=== PATIENT | female | born 1950 | race Caucasian/White ===

== ENCOUNTER 2018-04-23 05:44 | Day surgery (SDC) | payer MEDICARE ==
[2018-04-21 11:48] LABS: BASOPHILS # (AUTO) 0.08 x10^3/uL (0-0.1); BASOPHILS % (AUTO) 1 % (0-1); EOSINOPHILS # (AUTO) 0.09 x10^3/uL (0-0.4); EOSINOPHILS % (AUTO) 1 % (1-7); LYMPHOCYTES # (AUTO) 1.15 x10^3/uL (1-3.4); LYMPHOCYTES % (AUTO) 16 % (22-44); MD NO; MEAN CORPUSCULAR HEMOGLOBIN 31.5 pg (27.0-34.8); MEAN CORPUSCULAR VOLUME 92.8 fL (80-100); MEAN PLATELET VOLUME 7.6 fL (7.4-10.4); MONOCYTES # (AUTO) 0.62 x10^3/uL (0.2-0.8); MONOCYTES % (AUTO) 8 % (2-9); NEUTROPHILS # (AUTO) 5.45 x10^3/uL (1.8-6.8); NEUTROPHILS % (AUTO) 74 % (42-75); PLATELET COUNT 209 x10^3/uL (130-400); RED BLOOD COUNT 4.95 x10^6/uL (3.82-5.3); RED CELL DISTRIBUTION WIDTH 13.9 % (9.6-15.2)
[2018-04-21 11:56] LABS: ANION GAP 8 mmol/L (5-15); CALCIUM 9.5 mg/dL (8.5-10.1); CHLORIDE 96 mmol/L (98-107); CREATININE 0.81 mg/dL (0.55-1.02)
[~2018-04-23] VITALS: Ht 157.5 cm; Wt 53.0 kg
[~2018-04-23 05:44] MED LIST: AMLO10TA6 PO; ASPI-650 PO; LOSA1TAB22 PO; OXYC-302 PO; TRAM50TA2 PO; VALS320T2 PO
[2018-04-23 06:19] VITALS: BP 142/98
[2018-04-23] MEDS ORDERED: D5%-0.45% NACL 1,000 ML IV SCH (06:30)
[2018-04-23] MEDS ORDERED: DIPHENHYDRAMINE 50 MG/ML, 1ML ONE (07:08)
[2018-04-23] MEDS ORDERED: LIDOCAINE-MPF 1%, 5ML ONE (07:09)
[2018-04-23] MEDS ORDERED: NITROGLYCERIN 5 MG/ML, 10ML ONE (07:26)
[2018-04-23] MEDS ORDERED: FENTANYL PF 100 MCG/2ML ONE (07:26)
[2018-04-23] MEDS ORDERED: MIDAZOLAM 1 MG/ML, 5ML ONE (07:26)
[2018-04-23] MEDS ORDERED: FLUMAZENIL 0.1 MG/1 ML, 5ML ONE (07:26)
[2018-04-23] MEDS ORDERED: PROTAMINE SULFATE 10 MG/ML, 25ML ONE (07:27)
[2018-04-23] MEDS ORDERED: HEPARIN 1,000 UNITS/ML, 10ML ONE (07:27)
[2018-04-23] MEDS ORDERED: NALOXONE 1 MG/ML, 2ML ONE (07:27)
[2018-04-23] MEDS ORDERED: DIPHENHYDRAMINE 50 MG/ML, 1ML IVPush ONE (07:30)
[2018-04-23] MEDS ORDERED: CLOP75TA PO (09:44)
[2018-04-23] MEDS ORDERED: SODIUM CHLORIDE 0.9% 1,000 ML IV SCH (10:00)
[2018-04-23] MEDS ORDERED: CLOPIDOGREL 75 MG TABLET PO ONE (10:00)
[2018-04-23] MEDS ORDERED: VISIPAQUE 270 MG/ML, 50ML BOTTLE ONE (13:00)
== END 2018-04-23 14:00 | disposition home or self-care (01) ==
LOC: OUT 05:44
PROVIDERS: ATTEND Surgery
DX: I70.223 Atherosclerosis of native arteries of extremities with rest pain, bilateral legs (principal); I74.09 Other arterial embolism and thrombosis of abdominal aorta; I10 Essential (primary) hypertension; Z98.890 Other specified postprocedural states; Z96.641 Presence of right artificial hip joint; Z88.1 Allergy status to other antibiotic agents; Z88.8 Allergy status to other drugs, medicaments and biological substances; Z87.891 Personal history of nicotine dependence
CPT/HCPCS: 36415; 37221; 37236; 75630; 80048; 85025; 93970; C1751; C1760; C1769; C1874; C1876; C1894; J1200; J1644; J2250; J3010; Q9966; J2720; J2310

== ENCOUNTER → 2018-05-28 | Outpatient (CLI) | payer MEDICARE ==
[~2018-05-28] MED LIST changes: +CLOP75TA PO
[2018-05-28 11:25] LABS: BASOPHILS # (AUTO) 0.09 x10^3/uL (0-0.1); BASOPHILS % (AUTO) 1 % (0-1); EOSINOPHILS % (AUTO) 1 % (1-7); LYMPHOCYTES # (AUTO) 1.56 x10^3/uL (1-3.4); LYMPHOCYTES % (AUTO) 20 % (22-44); MD NO; MEAN CORPUSCULAR HEMOGLOBIN 30.3 pg (27.0-34.8); MEAN CORPUSCULAR HGB CONC 33.3 g/dL (32.4-35.8); MEAN CORPUSCULAR VOLUME 91.1 fL (80-100); MEAN PLATELET VOLUME 7.1 fL (7.4-10.4); MONOCYTES # (AUTO) 0.66 x10^3/uL (0.2-0.8); MONOCYTES % (AUTO) 9 % (2-9); NEUTROPHILS # (AUTO) 5.33 x10^3/uL (1.8-6.8); NEUTROPHILS % (AUTO) 69 % (42-75); PLATELET COUNT 203 x10^3/uL (130-400); RED BLOOD COUNT 4.54 x10^6/uL (3.82-5.3); RED CELL DISTRIBUTION WIDTH 13.7 % (9.6-15.2)
[2018-05-28 12:51] LABS: ANION GAP 6 mmol/L (5-15); CALCIUM 8.9 mg/dL (8.5-10.1); CHLORIDE 97 mmol/L (98-107); CREATININE 0.75 mg/dL (0.55-1.02)
== END | disposition home or self-care (01) ==
LOC: STAR 10:57
PROVIDERS: ATTEND Surgery
DX: Z01.818 Encounter for other preprocedural examination (principal)
CPT/HCPCS: 36415; 80048; 85025

== ENCOUNTER 2018-06-02 06:10 | Day surgery (SDC) | payer MEDICARE ==
[~2018-06-02] VITALS: Ht 157.5 cm; Wt 54.8 kg
[2018-06-02 06:28] VITALS: BP 143/97
[2018-06-02] MEDS ORDERED: D5%-0.45% NACL 1,000 ML IV SCH ×2 (06:30→09:31)
[2018-06-02] MEDS ORDERED: FENTANYL PF 100 MCG/2ML ONE (07:12)
[2018-06-02] MEDS ORDERED: HEPARIN 1,000 UNITS/ML, 10ML ONE (07:12)
[2018-06-02] MEDS ORDERED: FLUMAZENIL 0.1 MG/1 ML, 5ML ONE (07:12)
[2018-06-02] MEDS ORDERED: NITROGLYCERIN 5 MG/ML, 10ML ONE (07:12)
[2018-06-02] MEDS ORDERED: MIDAZOLAM 1 MG/ML, 5ML ONE (07:12)
[2018-06-02] MEDS ORDERED: NALOXONE 1 MG/ML, 2ML ONE (07:13)
[2018-06-02] MEDS ORDERED: PROTAMINE SULFATE 10 MG/ML, 25ML ONE (07:13)
[2018-06-02] MEDS ORDERED: LIDOCAINE-MPF 1%, 5ML ONE ×2 (07:28)
[2018-06-02] MEDS ORDERED: ACETAMINOPHEN 325 MG TABLET PO PRN (10:00)
[2018-06-02] MEDS ORDERED: ONDANSETRON 2MG/ML, 2ML IV PRN (10:00)
[2018-06-02] MEDS ORDERED: VISIPAQUE 270 MG/ML, 50ML BOTTLE ONE (11:21)
[2018-06-02] MEDS ORDERED: OMNIPAQUE 350 MG/ML, 100ML BOTTLE ONE (11:42)
== END 2018-06-02 13:05 | disposition home or self-care (01) ==
LOC: OUT 06:10 → UNDOADMOB 09:31 → ORIP 09:31 → OUT 13:05
PROVIDERS: ATTEND Surgery
DX: I70.221 Atherosclerosis of native arteries of extremities with rest pain, right leg (principal); I10 Essential (primary) hypertension; Z96.641 Presence of right artificial hip joint; Z98.890 Other specified postprocedural states
CPT/HCPCS: 37220; 74174; 75710; 76937; 99156; 99157; C1725; C1751; C1769; C1894; J1644; J2250; J3010; Q9966; Q9967; J2720; J2310

== ENCOUNTER → 2018-07-22 | Outpatient (CLI) | payer MEDICARE | END | disposition home or self-care (01) | LOC: CVU 13:26 | PROVIDERS: ATTEND Surgery | DX: I11.9 Hypertensive heart disease without heart failure (principal); I31.3 Pericardial effusion (noninflammatory); I10 Essential (primary) hypertension; Z87.891 Personal history of nicotine dependence | CPT/HCPCS: 93306 ==

== ENCOUNTER → 2018-08-25 | Outpatient (CLI) | payer MEDICARE ==
[~2018-08-25] MED LIST changes: -AMLO10TA6 PO; +AMLO10TA8 PO
[2018-08-25 15:41] LABS: BASOPHILS # (AUTO) 0.07 x10^3/uL (0-0.1); BASOPHILS % (AUTO) 1 % (0-1); EOSINOPHILS # (AUTO) 0.08 x10^3/uL (0-0.4); EOSINOPHILS % (AUTO) 1 % (1-7); LYMPHOCYTES # (AUTO) 1.35 x10^3/uL (1-3.4); LYMPHOCYTES % (AUTO) 19 % (22-44); MD NO; MEAN CORPUSCULAR HEMOGLOBIN 30.1 pg (27.0-34.8); MEAN CORPUSCULAR VOLUME 91.2 fL (80-100); MEAN PLATELET VOLUME 7.2 fL (7.4-10.4); MONOCYTES # (AUTO) 0.56 x10^3/uL (0.2-0.8); MONOCYTES % (AUTO) 8 % (2-9); NEUTROPHILS # (AUTO) 5.26 x10^3/uL (1.8-6.8); NEUTROPHILS % (AUTO) 72 % (42-75); PLATELET COUNT 184 x10^3/uL (130-400); RED BLOOD COUNT 4.96 x10^6/uL (3.82-5.3); RED CELL DISTRIBUTION WIDTH 14.3 % (9.6-15.2)
[2018-08-25 15:53] LABS: ALBUMIN 3.8 g/dL (3.4-5.0); ANION GAP 7 mmol/L (5-15); CALCIUM 9.1 mg/dL (8.5-10.1); CHLORIDE 99 mmol/L (98-107)
[2018-08-25 15:57] LABS: ALANINE AMINOTRANSFERASE 21 U/L (12-78); ALKALINE PHOSPHATASE 129 U/L (45-117); BILIRUBIN,TOTAL 0.5 mg/dL (0.2-1.0); CREATININE 0.71 mg/dL (0.55-1.02); TOTAL PROTEIN 7.6 g/dL (6.4-8.2)
== END | disposition home or self-care (01) ==
LOC: STAR 14:35
PROVIDERS: ATTEND Surgery
DX: Z01.818 Encounter for other preprocedural examination (principal)
CPT/HCPCS: 36415; 71046; 80053; 85025; 93005

== ENCOUNTER 2018-08-29 07:58 | Inpatient (IN) | payer MEDICARE ==
[~2018-08-29] VITALS: Ht 157.5 cm; Wt 52.3 kg
[~2018-08-29 07:58] MED LIST changes: +HEPARIN 1,000 UNITS/ML, 10ML ONE; +LIDOCAINE 1%, 20ML ONE; +PAPAVERINE 30 MG/ML, 2ML ONE; +PROTAMINE SULFATE 10 MG/ML, 5ML ONE; +THROMBIN 20,000 UNIT VIAL TP ONE
[2018-08-29 08:24] VITALS: BP 141/93
[2018-08-29] MEDS ORDERED: LACTATED RINGERS 1,000 ML IV SCH (08:28)
[2018-08-29] MEDS ORDERED: MIDAZOLAM 1 MG/ML, 2ML ONE ×2 (09:58→14:45)
[2018-08-29] MEDS ORDERED: FENTANYL PF 250 MCG/5ML ONE ×2 (09:59→16:06)
[2018-08-29] MEDS ORDERED: SUCCINYLCHOLINE 20 MG/ML, 10ML ONE (11:09)
[2018-08-29] MEDS ORDERED: MANNITOL PMX 20% [20 GM/100 ML] 500ML ONE (11:09)
[2018-08-29] MEDS ORDERED: EPINEPHRINE SYRINGE 0.1 MG/ML, 10ML ONE (11:09)
[2018-08-29] MEDS ORDERED: SODIUM BICARB 8.4%, 50ML SYRINGE ONE (11:09)
[2018-08-29] MEDS ORDERED: ONDANSETRON 2MG/ML, 2ML ONE (11:09)
[2018-08-29] MEDS ORDERED: PHENYLEPHRINE 10 MG/ML ONE (11:09)
[2018-08-29] MEDS ORDERED: ROCURONIUM 10MG/ML,5ML ONE (11:09)
[2018-08-29] MEDS ORDERED: LIDOCAINE 1%-EPI 1:100K, 20ML ONE (11:09)
[2018-08-29] MEDS ORDERED: CALCIUM CHLORIDE 13.6 MEQ/10 ML ONE (11:09)
[2018-08-29] MEDS ORDERED: FUROSEMIDE 20 MG/2 ML ONE (11:09)
[2018-08-29] MEDS ORDERED: HEPARIN 1,000 UNITS/ML, 10ML ONE (12:01)
[2018-08-29] MEDS ORDERED: MEPERIDINE/PF 25MG/0.5ML IVPush PRN (12:30)
[2018-08-29] MEDS ORDERED: PROMETHAZINE 25 MG/ML, 1ML IV PRN (12:30)
[2018-08-29] MEDS ORDERED: HALOPERIDOL 5 MG/ML IV PRN (12:30)
[2018-08-29] MEDS ORDERED: METOPROLOL 1 MG/ML, 5ML IV PRN (12:30)
[2018-08-29] MEDS ORDERED: DIPHENHYDRAMINE 50 MG/ML, 1ML IVPush PRN (12:30)
[2018-08-29] MEDS ORDERED: LABETALOL 5MG/ML, 20ML IV PRN (12:30)
[2018-08-29] MEDS ORDERED: OXYcodone 5 MG/5 ML ORAL.SOL UDC PO PRN (12:30)
[2018-08-29] MEDS ORDERED: FENTANYL PF 100 MCG/2ML IV PRN (12:30)
[2018-08-29] MEDS ORDERED: PROCHLORPERAZINE 5 MG/ML, 2ML IV PRN (12:30)
[2018-08-29] MEDS ORDERED: hydrALAzine 20 MG/ML, 1ML IV PRN (12:30)
[2018-08-29] MEDS ORDERED: NITROPRUSSIDE 25 MG/ML, 2ML ONE (12:35)
[2018-08-29] MEDS ORDERED: FENTANYL PF 100 MCG/2ML ONE (17:07)
[2018-08-29] MEDS ORDERED: HYDROmorphone 1 MG/ML, 1ML AMP ONE (17:07)
[2018-08-29] MEDS: HYDROmorphone 2 MG/ML, 1ML IVPush PRN ×3 (17:28→17:42)
[2018-08-29] MEDS ORDERED: EPHEDRINE 50 MG/ML, 1ML ONE (17:56)
[2018-08-29] MEDS ORDERED: EPHEDRINE 50 MG/ML, 1ML IVPush PRN (18:00)
[2018-08-29 18:58] VITALS: BP 88/62
[2018-08-29] MEDS ORDERED: HETASTARCH 0.9 % 500 ML IV ONE (19:30)
[2018-08-29] MEDS ORDERED: [UNRECOGNIZED DRUG - OTHER] IV ONE (19:30)
[2018-08-29] MEDS ORDERED: HETASTARCH 6% IV ONE (19:30)
[2018-08-29 19:59] LABS: ALANINE AMINOTRANSFERASE 68 U/L (12-78); ALBUMIN 2.1 g/dL (3.4-5.0); ANION GAP 10 mmol/L (5-15); CALCIUM 7.6 mg/dL (8.5-10.1); CHLORIDE 106 mmol/L (98-107)
[2018-08-29 20:01] LABS: ALKALINE PHOSPHATASE 62 U/L (45-117); BILIRUBIN,TOTAL 0.9 mg/dL (0.2-1.0); TOTAL PROTEIN 3.8 g/dL (6.4-8.2)
[2018-08-29] MEDS: D5%-LACTATED RINGERS 1,000 ML IV SCH (20:03)
[2018-08-29 20:05] LABS: MEAN CORPUSCULAR HEMOGLOBIN 31.1 pg (27.0-34.8); MEAN CORPUSCULAR VOLUME 91.5 fL (80-100); MEAN PLATELET VOLUME 7.5 fL (7.4-10.4); PLATELET COUNT 135 x10^3/uL (130-400); RED BLOOD COUNT 3.75 x10^6/uL (3.82-5.3); RED CELL DISTRIBUTION WIDTH 14.2 % (9.6-15.2)
[2018-08-29] MEDS: CEFAZOLIN PMX 1GM/50ML 50 ML IVPB SCH (20:12)
[2018-08-29 20:17] LABS: MD YES
[2018-08-29 20:19] LABS: BAND#(MANUAL) 3.51 x10^3/uL; BANDS%(MANUAL) 21 % (0-7); LYMPH#(MANUAL) 0.67 x10^3/uL (1-3.4); LYMPHS% (MANUAL) 4 % (22-44); MONOS#(MANUAL) 0.67 x10^3/uL (0.3-2.7); MONOS% (MANUAL) 4 % (2-9); SEG#(MANUAL) 11.86 x10^3/uL (1.8-6.8); SEGS% (MANUAL) 71 % (42-75)
[2018-08-29 20:20] LABS: <PLATELET ESTIMATE> ADEQUATE; <PLT MORPHOLOGY> NORMAL PLT MORPH; <RBC MORPHOLOGY> NORMAL
[2018-08-29] MEDS: ONDANSETRON 2MG/ML, 2ML IVPush PRN (21:39)
[2018-08-30] MEDS: D5%-LACTATED RINGERS 1,000 ML IV SCH (03:02)
[2018-08-30 04:00] VITALS: BP 99/64
[2018-08-30] MEDS: CEFAZOLIN PMX 1GM/50ML 50 ML IVPB SCH (04:15)
[2018-08-30 05:11] LABS: ANION GAP 8 mmol/L (5-15); CALCIUM 7.3 mg/dL (8.5-10.1); CHLORIDE 105 mmol/L (98-107); CREATININE 1.08 mg/dL (0.55-1.02)
[2018-08-30 05:58] LABS: MD YES
[2018-08-30 05:59] LABS: MEAN CORPUSCULAR HEMOGLOBIN 31.3 pg (27.0-34.8); MEAN CORPUSCULAR HGB CONC 34.1 g/dL (32.4-35.8); MEAN CORPUSCULAR VOLUME 91.6 fL (80-100); MEAN PLATELET VOLUME 7.6 fL (7.4-10.4); PLATELET COUNT 78 x10^3/uL (130-400); RED BLOOD COUNT 3.03 x10^6/uL (3.82-5.3); RED CELL DISTRIBUTION WIDTH 14.2 % (9.6-15.2)
[2018-08-30 06:01] LABS: BAND#(MANUAL) 1.38 x10^3/uL; BANDS%(MANUAL) 16 % (0-7); LYMPH#(MANUAL) 0.43 x10^3/uL (1-3.4); LYMPHS% (MANUAL) 5 % (22-44); MONOS#(MANUAL) 0.26 x10^3/uL (0.3-2.7); MONOS% (MANUAL) 3 % (2-9); SEG#(MANUAL) 6.54 x10^3/uL (1.8-6.8); SEGS% (MANUAL) 76 % (42-75)
[2018-08-30 06:02] LABS: <PLATELET ESTIMATE> DECREASED; <PLT MORPHOLOGY> NORMAL PLT MORPH; <RBC MORPHOLOGY> NORMAL
[2018-08-30] MEDS ORDERED: POTASSIUM CHLORIDE 20 MEQ TAB.ER.PRT PO ONE (07:30)
[2018-08-30] MEDS: SODIUM CHLORIDE 0.9% 1,000 ML IV SCH ×3 (08:00→22:18)
[2018-08-30] MEDS ORDERED: POTASSIUM CHLORIDE 40 MEQ in SODIUM CHLORIDE 0.9% 100 ML IV ONE (08:00)
[2018-08-30] MEDS: INSULIN LISPRO 100 UNITS/ML, PEN SQ-INSULIN SCH ×4 (08:46→21:00)
[2018-08-30] MEDS: ONDANSETRON 2MG/ML, 2ML IVPush PRN (09:00)
[2018-08-30] MEDS ORDERED: MAGNESIUM SULFATE PMX 4GM/100M 100 ML IV ONE (09:00)
[2018-08-30] MEDS: ENOXAPARIN 40 MG/0.4 ML SQ SCH (09:43)
[2018-08-30] MEDS ORDERED: SODIUM CHLORIDE 0.9% 1,000ML IVBOLUS ONE (12:30)
[2018-08-30] MEDS ORDERED: DEXTROSE 50%, 50ML SYRINGE IVPush PRN (18:00)
[2018-08-30] MEDS ORDERED: DEXTROSE 4 GM TAB.CHEW PO PRN (18:00)
[2018-08-30] MEDS ORDERED: GLUCAGON 1 MG IM PRN (18:00)
[2018-08-30 19:07] LABS: HEMOGLOBIN A1C 5.3 % (4.2-6.3)
[2018-08-31] MEDS: INSULIN LISPRO 100 UNITS/ML, PEN SQ-INSULIN SCH ×4 (03:00→21:59)
[2018-08-31 04:00] VITALS: BP 100/73
[2018-08-31 04:12] LABS: ALANINE AMINOTRANSFERASE 39 U/L (12-78); ALBUMIN 1.9 g/dL (3.4-5.0); ANION GAP 4 mmol/L (5-15); CALCIUM 6.8 mg/dL (8.5-10.1); CHLORIDE 115 mmol/L (98-107); CREATININE 0.99 mg/dL (0.55-1.02)
[2018-08-31 04:14] LABS: ALKALINE PHOSPHATASE 56 U/L (45-117); BILIRUBIN,TOTAL 0.4 mg/dL (0.2-1.0); TOTAL PROTEIN 3.9 g/dL (6.4-8.2)
[2018-08-31 04:15] LABS: MEAN CORPUSCULAR HEMOGLOBIN 31.4 pg (27.0-34.8); MEAN CORPUSCULAR HGB CONC 34.1 g/dL (32.4-35.8); MEAN CORPUSCULAR VOLUME 91.9 fL (80-100); RED BLOOD COUNT 2.73 x10^6/uL (3.82-5.3); RED CELL DISTRIBUTION WIDTH 14.8 % (9.6-15.2)
[2018-08-31 04:28] LABS: MD YES; MEAN PLATELET VOLUME 7.9 fL (7.4-10.4); PLATELET COUNT 90 x10^3/uL (130-400)
[2018-08-31 04:30] LABS: <RBC MORPHOLOGY> NORMAL; BAND#(MANUAL) 1.78 x10^3/uL; BANDS%(MANUAL) 16 % (0-7); LYMPH#(MANUAL) 0.33 x10^3/uL (1-3.4); LYMPHS% (MANUAL) 3 % (22-44); METAMYELOCYTES# (MANUAL) 0.33 x10^3/uL (0-0); METAMYELOCYTES% (MANUAL) 3 % (0-1); MONOS#(MANUAL) 0.22 x10^3/uL (0.3-2.7); MONOS% (MANUAL) 2 % (2-9); SEG#(MANUAL) 8.44 x10^3/uL (1.8-6.8); SEGS% (MANUAL) 76 % (42-75)
[2018-08-31 04:31] LABS: <PLATELET ESTIMATE> DECREASED; <PLT MORPHOLOGY> NORMAL PLT MORPH
[2018-08-31] MEDS: SODIUM CHLORIDE 0.9% 1,000 ML IV SCH (04:46)
[2018-08-31] MEDS ORDERED: FUROSEMIDE 20 MG/2 ML IV ONE (09:00)
[2018-08-31] MEDS ORDERED: SODIUM CHLORIDE 0.9% 1,000 ML IV SCH (09:30)
[2018-08-31] MEDS: ALBUMIN HUMAN 25% 100 ML IV SCH ×2 (09:37→22:54)
[2018-08-31] MEDS: ENOXAPARIN 40 MG/0.4 ML SQ SCH (09:37)
[2018-08-31] MEDS: AMPICILLIN/SULBACTAM 3 GM in SODIUM CHLORIDE 0.9% 100 ML IV SCH ×3 (10:35→22:00)
[2018-08-31] MEDS: D5%-0.9% NACL 1,000 ML IV SCH (16:00)
[2018-08-31 19:00] VITALS: BP 112/70
[2018-09-01] MEDS: INSULIN LISPRO 100 UNITS/ML, PEN SQ-INSULIN SCH ×4 (03:00→21:00)
[2018-09-01] MEDS: D5%-0.9% NACL 1,000 ML IV SCH (03:19)
[2018-09-01 03:29] VITALS: BP 123/77
[2018-09-01] MEDS: AMPICILLIN/SULBACTAM 3 GM in SODIUM CHLORIDE 0.9% 100 ML IV SCH ×3 (04:37→18:01)
[2018-09-01 05:26] LABS: CHLORIDE 116 mmol/L (98-107)
[2018-09-01 05:34] LABS: ANION GAP 4 mmol/L (5-15); CALCIUM 7.4 mg/dL (8.5-10.1); CREATININE 0.78 mg/dL (0.55-1.02)
[2018-09-01 05:42] LABS: MEAN CORPUSCULAR HEMOGLOBIN 31.8 pg (27.0-34.8); MEAN CORPUSCULAR HGB CONC 34.5 g/dL (32.4-35.8); MEAN CORPUSCULAR VOLUME 92.2 fL (80-100); RED BLOOD COUNT 2.47 x10^6/uL (3.82-5.3); RED CELL DISTRIBUTION WIDTH 15.2 % (9.6-15.2)
[2018-09-01 06:15] LABS: BASOPHILS % (AUTO) 0 % (0-1); EOSINOPHILS % (AUTO) 0 % (1-7); LYMPHOCYTES # (AUTO) 0.49 x10^3/uL (1-3.4); LYMPHOCYTES % (AUTO) 5 % (22-44); MD SCAN; MEAN PLATELET VOLUME 7.3 fL (7.4-10.4); MONOCYTES # (AUTO) 0.45 x10^3/uL (0.2-0.8); MONOCYTES % (AUTO) 5 % (2-9); NEUTROPHILS # (AUTO) 8.79 x10^3/uL (1.8-6.8); NEUTROPHILS % (AUTO) 90 % (42-75); PLATELET COUNT 67 x10^3/uL (130-400)
[2018-09-01 07:19] VITALS: BP 124/84
[2018-09-01] MEDS: ALBUMIN HUMAN 25% 100 ML IV SCH ×2 (09:27→22:23)
[2018-09-01] MEDS: ENOXAPARIN 40 MG/0.4 ML SQ SCH (09:27)
[2018-09-01] MEDS: POTASSIUM CHLORIDE 20 MEQ in DEXTROSE 5% 1,000 ML IV SCH ×2 (12:40→21:30)
[2018-09-01 13:41] VITALS: BP 140/81
[2018-09-01 19:09] VITALS: BP 140/84
[2018-09-02] MEDS: AMPICILLIN/SULBACTAM 3 GM in SODIUM CHLORIDE 0.9% 100 ML IV SCH ×3 (00:17→11:30)
[2018-09-02 01:22] VITALS: BP 139/85
[2018-09-02] MEDS: POTASSIUM CHLORIDE 20 MEQ in DEXTROSE 5% 1,000 ML IV SCH (02:30)
[2018-09-02] MEDS: INSULIN LISPRO 100 UNITS/ML, PEN SQ-INSULIN SCH ×4 (02:45→20:15)
[2018-09-02 05:58] LABS: MEAN CORPUSCULAR HEMOGLOBIN 30.5 pg (27.0-34.8); MEAN CORPUSCULAR HGB CONC 33.3 g/dL (32.4-35.8); MEAN CORPUSCULAR VOLUME 91.6 fL (80-100); MEAN PLATELET VOLUME 7.6 fL (7.4-10.4); PLATELET COUNT 51 x10^3/uL (130-400); RED BLOOD COUNT 2.36 x10^6/uL (3.82-5.3); RED CELL DISTRIBUTION WIDTH 15.2 % (9.6-15.2)
[2018-09-02 06:06] LABS: ANION GAP 5 mmol/L (5-15); CALCIUM 7.5 mg/dL (8.5-10.1); CHLORIDE 107 mmol/L (98-107); CREATININE 0.65 mg/dL (0.55-1.02)
[2018-09-02 06:24] LABS: BASOPHILS % (AUTO) 0 % (0-1); EOSINOPHILS # (AUTO) 0.02 x10^3/uL (0-0.4); EOSINOPHILS % (AUTO) 0 % (1-7); LYMPHOCYTES # (AUTO) 0.72 x10^3/uL (1-3.4); LYMPHOCYTES % (AUTO) 8 % (22-44); MD SCAN; MONOCYTES # (AUTO) 0.61 x10^3/uL (0.2-0.8); MONOCYTES % (AUTO) 7 % (2-9); NEUTROPHILS # (AUTO) 7.39 x10^3/uL (1.8-6.8); NEUTROPHILS % (AUTO) 85 % (42-75)
[2018-09-02 06:59] VITALS: BP 135/77
[2018-09-02] MEDS: ENOXAPARIN 40 MG/0.4 ML SQ SCH (08:44)
[2018-09-02] MEDS ORDERED: POTASSIUM CHLORIDE 20 MEQ TAB.ER.PRT PO ONE ×2 (10:00→21:00)
[2018-09-02] MEDS ORDERED: FUROSEMIDE 20 MG/2 ML IV ONE (10:00)
[2018-09-02] MEDS: ALBUMIN HUMAN 25% 100 ML IV SCH ×2 (10:05→22:32)
[2018-09-02] MEDS: CEFEPIME 1 GM in DEXTROSE 5% 50 ML IV SCH ×2 (13:01→20:36)
[2018-09-02 13:20] VITALS: BP 140/75
[2018-09-02] MEDS ORDERED: VANCOMYCIN PER PHARMACY MC PRN (14:00)
[2018-09-02] MEDS ORDERED: PHARMACOKINETIC CONSULTATION MC ONE (14:30)
[2018-09-02] MEDS ORDERED: VANCOMYCIN 1,300 MG in SODIUM CHLORIDE 0.9% 250 ML IV SCH (14:30)
[2018-09-02] MEDS ORDERED: PHARMACOKINETIC MONITORING MC PRN (14:30)
[2018-09-02] MEDS ORDERED: FUROSEMIDE 20 MG/2 ML IV SCH (17:00)
[2018-09-02 19:43] VITALS: BP 163/92
[2018-09-02] MEDS: FUROSEMIDE 20 MG/2 ML IV SCH (20:14)
[2018-09-03 01:22] VITALS: BP 150/85
[2018-09-03] MEDS: INSULIN LISPRO 100 UNITS/ML, PEN SQ-INSULIN SCH (03:00)
[2018-09-03] MEDS: CEFEPIME 1 GM in DEXTROSE 5% 50 ML IV SCH ×2 (04:31→13:17)
[2018-09-03] MEDS: FUROSEMIDE 20 MG/2 ML IV SCH (07:30)
[2018-09-03] MEDS ORDERED: FUROSEMIDE 20 MG/2 ML IV ONE (08:00)
[2018-09-03 08:11] LABS: ANION GAP 5 mmol/L (5-15); CHLORIDE 103 mmol/L (98-107)
[2018-09-03 08:15] LABS: CREATININE 0.64 mg/dL (0.55-1.02)
[2018-09-03 08:30] VITALS: BP 153/84
[2018-09-03] MEDS ORDERED: POTASSIUM CHLORIDE 20 MEQ TAB.ER.PRT PO ONE (09:00)
[2018-09-03] MEDS: ENOXAPARIN 40 MG/0.4 ML SQ SCH (09:26)
[2018-09-03] MEDS: ALBUMIN HUMAN 25% 100 ML IV SCH (10:00)
[2018-09-03 13:24] VITALS: BP 132/82
[2018-09-03] MEDS ORDERED: MAGNESIUM SULFATE PMX 2GM/50ML 50 ML IV ONE (16:30)
[2018-09-03] MEDS: VANCOMYCIN 1,200 MG in SODIUM CHLORIDE 0.9% 250 ML IV SCH (16:48)
[2018-09-03] MEDS: POTASSIUM CHLORIDE 20 MEQ TAB.ER.PRT PO SCH (16:48)
[2018-09-03 19:47] VITALS: BP 140/89
[2018-09-04 00:40] VITALS: BP 116/77
[2018-09-04] MEDS: CEFEPIME 1 GM in DEXTROSE 5% 50 ML IV SCH ×3 (01:00→16:53)
[2018-09-04] MEDS: ALBUMIN HUMAN 25% 100 ML IV SCH ×2 (02:00→13:57)
[2018-09-04 06:14] LABS: ANION GAP 3 mmol/L (5-15); CALCIUM 7.8 mg/dL (8.5-10.1); CHLORIDE 102 mmol/L (98-107); CREATININE 0.63 mg/dL (0.55-1.02)
[2018-09-04] MEDS: POTASSIUM CHLORIDE 20 MEQ TAB.ER.PRT PO SCH ×2 (08:40→16:53)
[2018-09-04] MEDS: ENOXAPARIN 40 MG/0.4 ML SQ SCH (08:41)
[2018-09-04 09:45] VITALS: BP 99/67
[2018-09-04] MEDS ORDERED: BISACODYL 10 MG SUPP PR PRN (11:30)
[2018-09-04 12:56] VITALS: BP 123/85
[2018-09-04] MEDS: VANCOMYCIN 1,200 MG in SODIUM CHLORIDE 0.9% 250 ML IV SCH (15:40)
[2018-09-04 19:06] VITALS: BP 132/89
[2018-09-04] MEDS: DOCUSATE 100 MG CAPSULE PO SCH (21:05)
[2018-09-05] VITALS (15 sets, daily range): BP systolic 114–157; BP diastolic 74–94
[2018-09-05] MEDS: CEFEPIME 1 GM in DEXTROSE 5% 50 ML IV SCH ×3 (00:45→18:07)
[2018-09-05] MEDS: ALBUMIN HUMAN 25% 100 ML IV SCH ×2 (02:07→15:00)
[2018-09-05] MEDS ORDERED: ALBUTEROL/IPRATROPIUM 2.5MG/0.5MG, 3 ML NPPB SCH (06:00)
[2018-09-05 06:02] LABS: ANION GAP 3 mmol/L (5-15); CHLORIDE 105 mmol/L (98-107); CREATININE 0.61 mg/dL (0.55-1.02)
[2018-09-05 06:17] LABS: MEAN CORPUSCULAR HEMOGLOBIN 31.1 pg (27.0-34.8); MEAN CORPUSCULAR HGB CONC 34.1 g/dL (32.4-35.8); MEAN CORPUSCULAR VOLUME 91.2 fL (80-100); RED BLOOD COUNT 2.22 x10^6/uL (3.82-5.3); RED CELL DISTRIBUTION WIDTH 14.6 % (9.6-15.2)
[2018-09-05 07:18] LABS: MEAN PLATELET VOLUME 7.8 fL (7.4-10.4); PLATELET COUNT 149 x10^3/uL (130-400)
[2018-09-05 07:20] LABS: MD YES
[2018-09-05 07:22] LABS: BAND#(MANUAL) 0.64 x10^3/uL; BANDS%(MANUAL) 8 % (0-7); EOS#(MANUAL) 0.08 x10^3/uL (0.0-0.4); EOS% (MANUAL) 1 % (1-7); LYMPH#(MANUAL) 0.64 x10^3/uL (1-3.4); LYMPHS% (MANUAL) 8 % (22-44); MONOS#(MANUAL) 0.72 x10^3/uL (0.3-2.7); MONOS% (MANUAL) 9 % (2-9); SEG#(MANUAL) 5.92 x10^3/uL (1.8-6.8); SEGS% (MANUAL) 74 % (42-75)
[2018-09-05 07:24] LABS: <PLATELET ESTIMATE> ADEQUATE; <PLT MORPHOLOGY> NORMAL PLT MORPH; <RBC MORPHOLOGY> NORMAL
[2018-09-05] MEDS: POTASSIUM CHLORIDE 20 MEQ TAB.ER.PRT PO SCH ×2 (09:04→17:22)
[2018-09-05] MEDS: DOCUSATE 100 MG CAPSULE PO SCH ×2 (09:04→20:01)
[2018-09-05] MEDS: ENOXAPARIN 40 MG/0.4 ML SQ SCH (09:57)
[2018-09-05 10:34] LABS: CLOSTRIDIUM DIFFICILE ANTIGEN NEGATIVE; CLOSTRIDIUM DIFFICILE TOXIN NEGATIVE (Negative)
[2018-09-05 11:01] LABS: OCCULT BLOOD NEGATIVE (NEGATIVE)
[2018-09-05] MEDS ORDERED: FUROSEMIDE 20 MG/2 ML IV ONE (13:00)
[2018-09-05] MEDS ORDERED: FUROSEMIDE 20 MG/2 ML ONE (13:06)
[2018-09-05] MEDS: VANCOMYCIN 1,200 MG in SODIUM CHLORIDE 0.9% 250 ML IV SCH (16:12)
[2018-09-06 00:10] VITALS: BP 154/86
[2018-09-06] MEDS: CEFEPIME 1 GM in DEXTROSE 5% 50 ML IV SCH ×3 (01:06→16:41)
[2018-09-06] MEDS: ALBUMIN HUMAN 25% 100 ML IV SCH (03:09)
[2018-09-06 05:16] LABS: BASOPHILS % (AUTO) 0 % (0-1); CHLORIDE 105 mmol/L (98-107); EOSINOPHILS # (AUTO) 0.06 x10^3/uL (0-0.4); EOSINOPHILS % (AUTO) 1 % (1-7); LYMPHOCYTES # (AUTO) 1.13 x10^3/uL (1-3.4); LYMPHOCYTES % (AUTO) 9 % (22-44); MD NO; MEAN CORPUSCULAR HEMOGLOBIN 30.4 pg (27.0-34.8); MEAN CORPUSCULAR HGB CONC 33.7 g/dL (32.4-35.8); MEAN PLATELET VOLUME 7.8 fL (7.4-10.4); MONOCYTES # (AUTO) 0.57 x10^3/uL (0.2-0.8); MONOCYTES % (AUTO) 5 % (2-9); NEUTROPHILS % (AUTO) 86 % (42-75); PLATELET COUNT 199 x10^3/uL (130-400); RED BLOOD COUNT 3.72 x10^6/uL (3.82-5.3); RED CELL DISTRIBUTION WIDTH 16.2 % (9.6-15.2)
[2018-09-06 05:27] LABS: ALANINE AMINOTRANSFERASE 35 U/L (12-78); ALBUMIN 4.3 g/dL (3.4-5.0); ALKALINE PHOSPHATASE 130 U/L (45-117); ANION GAP 3 mmol/L (5-15); CALCIUM 8.1 mg/dL (8.5-10.1); CREATININE 0.67 mg/dL (0.55-1.02); TOTAL PROTEIN 6.7 g/dL (6.4-8.2)
[2018-09-06 08:04] VITALS: BP 135/91
[2018-09-06] MEDS ORDERED: AMLODIPINE 10 MG TAB PO SCH (09:00)
[2018-09-06] MEDS: POTASSIUM CHLORIDE 20 MEQ TAB.ER.PRT PO SCH ×4 (09:06→21:23)
[2018-09-06] MEDS: DOCUSATE 100 MG CAPSULE PO SCH ×2 (09:06→21:24)
[2018-09-06] MEDS: LOSARTAN 50MG TABLET PO SCH (09:07)
[2018-09-06] MEDS: ENOXAPARIN 40 MG/0.4 ML SQ SCH (09:07)
[2018-09-06] MEDS: VANCOMYCIN 1,300 MG in SODIUM CHLORIDE 0.9% 250 ML IV SCH (11:52)
[2018-09-06] MEDS: METOPROLOL TARTRATE 50 MG TABLET PO SCH ×2 (11:53→17:08)
[2018-09-06] MEDS: NEUTRA PHOS K 250 MG TABLET PO SCH ×3 (11:54→21:23)
[2018-09-06 12:55] LABS: MICROSCOPIC INDICATED
[2018-09-06 14:00] VITALS: BP 130/85
[2018-09-06 19:19] VITALS: BP 136/85
[2018-09-07] MEDS: CEFEPIME 1 GM in DEXTROSE 5% 50 ML IV SCH ×3 (01:10→17:23)
[2018-09-07 01:18] VITALS: BP 133/90
[2018-09-07] MEDS: METOPROLOL TARTRATE 50 MG TABLET PO SCH ×2 (06:11→18:13)
[2018-09-07 07:44] VITALS: BP 128/77
[2018-09-07] MEDS: NEUTRA PHOS K 250 MG TABLET PO SCH ×3 (08:16→20:50)
[2018-09-07] MEDS: LOSARTAN 50MG TABLET PO SCH (08:17)
[2018-09-07] MEDS: POTASSIUM CHLORIDE 20 MEQ TAB.ER.PRT PO SCH ×2 (08:17→16:28)
[2018-09-07] MEDS: ENOXAPARIN 40 MG/0.4 ML SQ SCH (08:18)
[2018-09-07] MEDS: DOCUSATE 100 MG CAPSULE PO SCH ×2 (08:18→20:51)
[2018-09-07] MEDS: VANCOMYCIN 1,300 MG in SODIUM CHLORIDE 0.9% 250 ML IV SCH (11:50)
[2018-09-07 12:45] VITALS: BP 143/89
[2018-09-07 19:52] VITALS: BP 135/84
[2018-09-08 01:07] VITALS: BP 127/80
[2018-09-08] MEDS: CEFEPIME 1 GM in DEXTROSE 5% 50 ML IV SCH ×2 (01:27→10:45)
[2018-09-08 05:08] LABS: BASOPHILS # (AUTO) 0.01 x10^3/uL (0-0.1); BASOPHILS % (AUTO) 0 % (0-1); EOSINOPHILS # (AUTO) 0.07 x10^3/uL (0-0.4); EOSINOPHILS % (AUTO) 1 % (1-7); LYMPHOCYTES # (AUTO) 0.62 x10^3/uL (1-3.4); LYMPHOCYTES % (AUTO) 4 % (22-44); MD NO; MEAN CORPUSCULAR HEMOGLOBIN 29.6 pg (27.0-34.8); MEAN CORPUSCULAR HGB CONC 31.9 g/dL (32.4-35.8); MEAN CORPUSCULAR VOLUME 92.9 fL (80-100); MEAN PLATELET VOLUME 7.7 fL (7.4-10.4); MONOCYTES # (AUTO) 0.53 x10^3/uL (0.2-0.8); MONOCYTES % (AUTO) 4 % (2-9); NEUTROPHILS # (AUTO) 12.92 x10^3/uL (1.8-6.8); NEUTROPHILS % (AUTO) 91 % (42-75); PLATELET COUNT 164 x10^3/uL (130-400); RED BLOOD COUNT 4.05 x10^6/uL (3.82-5.3); RED CELL DISTRIBUTION WIDTH 16.4 % (9.6-15.2)
[2018-09-08 05:19] LABS: ANION GAP 4 mmol/L (5-15); CALCIUM 8.4 mg/dL (8.5-10.1); CHLORIDE 111 mmol/L (98-107)
[2018-09-08] MEDS: METOPROLOL TARTRATE 50 MG TABLET PO SCH ×2 (05:49→17:43)
[2018-09-08 06:42] VITALS: BP 128/66
[2018-09-08] MEDS: POTASSIUM CHLORIDE 20 MEQ TAB.ER.PRT PO SCH ×2 (08:51→17:00)
[2018-09-08 08:52] VITALS: BP 123/85
[2018-09-08] MEDS: DOCUSATE 100 MG CAPSULE PO SCH ×2 (08:52→21:00)
[2018-09-08] MEDS: ENOXAPARIN 40 MG/0.4 ML SQ SCH (08:52)
[2018-09-08] MEDS: LOSARTAN 50MG TABLET PO SCH (08:52)
[2018-09-08] MEDS: NEUTRA PHOS K 250 MG TABLET PO SCH ×3 (08:52→21:00)
[2018-09-08 12:52] VITALS: BP 125/71
[2018-09-08] MEDS: VANCOMYCIN 1,300 MG in SODIUM CHLORIDE 0.9% 250 ML IV SCH (13:05)
[2018-09-08] MEDS ORDERED: HEPARIN 5,000 UNITS/ML, 1ML IV ONE (14:00)
[2018-09-08] MEDS: HEPARIN 25,000 UNITS/500ML PMX 500 ML IV PRN (16:08)
[2018-09-08 18:46] VITALS: BP 129/85
[2018-09-08] MEDS: CEFEPIME 2 GM in DEXTROSE 5% 100 ML IV SCH (19:46)
[2018-09-08] MEDS: AZITHROMYCIN 500 MG in SODIUM CHLORIDE 0.9% 250 ML IV SCH (21:00)
[2018-09-08] MEDS: HEPARIN 5,000 UNITS/ML, 1ML IV PRN (23:33)
[2018-09-09 02:42] VITALS: BP 123/79
[2018-09-09 06:06] LABS: BASOPHILS # (AUTO) 0.03 x10^3/uL (0-0.1); BASOPHILS % (AUTO) 0 % (0-1); EOSINOPHILS % (AUTO) 1 % (1-7); LYMPHOCYTES # (AUTO) 0.53 x10^3/uL (1-3.4); LYMPHOCYTES % (AUTO) 4 % (22-44); MD NO; MEAN CORPUSCULAR HEMOGLOBIN 30.4 pg (27.0-34.8); MEAN CORPUSCULAR HGB CONC 33.3 g/dL (32.4-35.8); MEAN CORPUSCULAR VOLUME 91.5 fL (80-100); MEAN PLATELET VOLUME 7.9 fL (7.4-10.4); MONOCYTES # (AUTO) 0.55 x10^3/uL (0.2-0.8); MONOCYTES % (AUTO) 4 % (2-9); NEUTROPHILS # (AUTO) 12.59 x10^3/uL (1.8-6.8); NEUTROPHILS % (AUTO) 91 % (42-75); PLATELET COUNT 179 x10^3/uL (130-400); RED BLOOD COUNT 3.43 x10^6/uL (3.82-5.3); RED CELL DISTRIBUTION WIDTH 15.9 % (9.6-15.2)
[2018-09-09 06:15] LABS: ANION GAP 3 mmol/L (5-15); CALCIUM 7.9 mg/dL (8.5-10.1); CHLORIDE 110 mmol/L (98-107)
[2018-09-09 06:16] LABS: CREATININE 0.99 mg/dL (0.55-1.02)
[2018-09-09] MEDS: CEFEPIME 2 GM in DEXTROSE 5% 100 ML IV SCH ×3 (06:40→20:18)
[2018-09-09] MEDS: METOPROLOL TARTRATE 50 MG TABLET PO SCH ×2 (06:41→17:20)
[2018-09-09 06:49] VITALS: BP 132/89
[2018-09-09] MEDS: HEPARIN 5,000 UNITS/ML, 1ML IV PRN ×2 (07:40→15:06)
--- NOTE | 2018-09-09 11:02 | NUR ---
REC THIN/CHOPPED; swallow precautions sheet at bedside Addendum: 09/09/18 at [address] Amended: Links added.
[2018-09-09] MEDS: DOCUSATE 100 MG CAPSULE PO SCH ×2 (12:21→21:00)
[2018-09-09] MEDS: NEUTRA PHOS K 250 MG TABLET PO SCH ×3 (12:21→20:18)
[2018-09-09] MEDS: POTASSIUM CHLORIDE 20 MEQ TAB.ER.PRT PO SCH ×2 (12:21→17:19)
[2018-09-09] MEDS: LOSARTAN 50MG TABLET PO SCH (12:22)
[2018-09-09 13:28] VITALS: BP 123/68
[2018-09-09] MEDS: HEPARIN 25,000 UNITS/500ML PMX 500 ML IV PRN ×2 (15:10→21:34)
[2018-09-09 20:26] VITALS: BP 145/91
[2018-09-09] MEDS: ACETAMINOPHEN 325 MG TABLET PO PRN (20:34)
[2018-09-09] MEDS: AZITHROMYCIN 500 MG in SODIUM CHLORIDE 0.9% 250 ML IV SCH (21:22)
[2018-09-10 01:45] VITALS: BP 132/86
[2018-09-10] MEDS: CEFEPIME 2 GM in DEXTROSE 5% 100 ML IV SCH ×3 (04:02→21:10)
[2018-09-10 04:03] LABS: BASOPHILS # (AUTO) 0.05 x10^3/uL (0-0.1); BASOPHILS % (AUTO) 0 % (0-1); EOSINOPHILS # (AUTO) 0.15 x10^3/uL (0-0.4); EOSINOPHILS % (AUTO) 1 % (1-7); LYMPHOCYTES # (AUTO) 0.61 x10^3/uL (1-3.4); LYMPHOCYTES % (AUTO) 4 % (22-44); MD NO; MEAN CORPUSCULAR HEMOGLOBIN 30.5 pg (27.0-34.8); MEAN CORPUSCULAR HGB CONC 33.1 g/dL (32.4-35.8); MEAN CORPUSCULAR VOLUME 92.3 fL (80-100); MONOCYTES # (AUTO) 0.59 x10^3/uL (0.2-0.8); MONOCYTES % (AUTO) 4 % (2-9); NEUTROPHILS % (AUTO) 91 % (42-75); PLATELET COUNT 180 x10^3/uL (130-400); RED BLOOD COUNT 3.57 x10^6/uL (3.82-5.3); RED CELL DISTRIBUTION WIDTH 15.5 % (9.6-15.2)
[2018-09-10 04:10] LABS: ALANINE AMINOTRANSFERASE 37 U/L (12-78); ALBUMIN 3.2 g/dL (3.4-5.0); ANION GAP 5 mmol/L (5-15); CHLORIDE 110 mmol/L (98-107); CREATININE 1.19 mg/dL (0.55-1.02)
[2018-09-10 04:12] LABS: ALKALINE PHOSPHATASE 176 U/L (45-117); BILIRUBIN,TOTAL 0.5 mg/dL (0.2-1.0); TOTAL PROTEIN 6.1 g/dL (6.4-8.2)
[2018-09-10 06:16] VITALS: BP 137/71
[2018-09-10] MEDS: METOPROLOL TARTRATE 50 MG TABLET PO SCH ×2 (06:20→18:00)
[2018-09-10 07:38] VITALS: BP 143/81
[2018-09-10] MEDS: NEUTRA PHOS K 250 MG TABLET PO SCH ×3 (09:50→21:16)
[2018-09-10] MEDS: LOSARTAN 50MG TABLET PO SCH (09:51)
[2018-09-10] MEDS: POTASSIUM CHLORIDE 20 MEQ TAB.ER.PRT PO SCH ×2 (09:51→18:00)
[2018-09-10] MEDS: DOCUSATE 100 MG CAPSULE PO SCH ×2 (09:51→21:19)
[2018-09-10] MEDS: ALBUTEROL/IPRATROPIUM 2.5MG/0.5MG, 3 ML NPPB PRN (10:42)
[2018-09-10 12:50] VITALS: BP 115/82
[2018-09-10 14:23] VITALS: BP 109/73
[2018-09-10] MEDS: SODIUM CHLORIDE 0.9% 1,000 ML IV SCH (18:00)
[2018-09-10 18:46] VITALS: BP 118/68
[2018-09-10] MEDS: HEPARIN 25,000 UNITS/500ML PMX 500 ML IV PRN (19:08)
[2018-09-10] MEDS: AZITHROMYCIN 500 MG in SODIUM CHLORIDE 0.9% 250 ML IV SCH (21:53)
[2018-09-11 03:13] VITALS: BP 130/84
[2018-09-11] MEDS: SODIUM CHLORIDE 0.9% 1,000 ML IV SCH (04:00)
[2018-09-11] MEDS: CEFEPIME 2 GM in DEXTROSE 5% 100 ML IV SCH ×2 (04:32→12:19)
[2018-09-11 05:49] VITALS: BP 120/84
[2018-09-11] MEDS: METOPROLOL TARTRATE 50 MG TABLET PO SCH ×2 (05:53→18:33)
[2018-09-11 06:58] VITALS: BP 135/91
[2018-09-11] MEDS: POTASSIUM CHLORIDE 20 MEQ TAB.ER.PRT PO SCH (08:00)
[2018-09-11] MEDS: DOCUSATE 100 MG CAPSULE PO SCH ×2 (09:00→21:30)
[2018-09-11] MEDS: NEUTRA PHOS K 250 MG TABLET PO SCH (09:00)
[2018-09-11] MEDS ORDERED: LIDODERM 5% PATCH TD SCH (10:00)
[2018-09-11] MEDS: ACETAMINOPHEN 325 MG TABLET PO PRN (10:00)
[2018-09-11] MEDS: LOSARTAN 50MG TABLET PO SCH (10:08)
[2018-09-11 11:51] LABS: BASOPHILS # (AUTO) 0.09 x10^3/uL (0-0.1); BASOPHILS % (AUTO) 1 % (0-1); EOSINOPHILS # (AUTO) 0.11 x10^3/uL (0-0.4); EOSINOPHILS % (AUTO) 1 % (1-7); LYMPHOCYTES # (AUTO) 0.58 x10^3/uL (1-3.4); LYMPHOCYTES % (AUTO) 4 % (22-44); MD NO; MEAN CORPUSCULAR HEMOGLOBIN 29.3 pg (27.0-34.8); MEAN CORPUSCULAR HGB CONC 32.3 g/dL (32.4-35.8); MEAN CORPUSCULAR VOLUME 90.9 fL (80-100); MEAN PLATELET VOLUME 8.4 fL (7.4-10.4); MONOCYTES # (AUTO) 0.76 x10^3/uL (0.2-0.8); MONOCYTES % (AUTO) 6 % (2-9); NEUTROPHILS % (AUTO) 88 % (42-75); PLATELET COUNT 180 x10^3/uL (130-400); RED BLOOD COUNT 3.44 x10^6/uL (3.82-5.3); RED CELL DISTRIBUTION WIDTH 15.8 % (9.6-15.2)
[2018-09-11 11:59] LABS: ANION GAP 6 mmol/L (5-15); CALCIUM 7.9 mg/dL (8.5-10.1); CHLORIDE 111 mmol/L (98-107); CREATININE 1.32 mg/dL (0.55-1.02)
[2018-09-11] MEDS: ALBUTEROL/IPRATROPIUM 2.5MG/0.5MG, 3 ML NPPB PRN (14:10)
[2018-09-11] MEDS ORDERED: FUROSEMIDE 40 MG/4 ML ONE (14:43)
[2018-09-11] MEDS ORDERED: FUROSEMIDE 40 MG/4 ML IV ONE (15:00)
[2018-09-11] MEDS: MEROPENEM 1 GM in SODIUM CHLORIDE 0.9% 100 ML IV SCH (15:08)
[2018-09-11 15:39] LABS: TROPONIN I < 0.015 ng/mL (0.000-0.045)
[2018-09-11] MEDS: METOLAZONE 5 MG TABLET PO SCH (18:33)
[2018-09-11] MEDS: FUROSEMIDE 20 MG/2 ML IV SCH (18:35)
[2018-09-11] MEDS: LINEZOLID 600 MG TABLET PO SCH (21:30)
[2018-09-11] MEDS: HEPARIN 25,000 UNITS/500ML PMX 500 ML IV PRN (21:35)
[2018-09-12] MEDS: MEROPENEM 1 GM in SODIUM CHLORIDE 0.9% 100 ML IV SCH ×2 (00:38→12:02)
[2018-09-12 04:00] VITALS: BP 119/68
[2018-09-12 05:52] LABS: CHLORIDE 104 mmol/L (98-107)
[2018-09-12 06:03] LABS: ALANINE AMINOTRANSFERASE 35 U/L (12-78); ALBUMIN 2.4 g/dL (3.4-5.0); ALKALINE PHOSPHATASE 161 U/L (45-117); ANION GAP 7 mmol/L (5-15); CALCIUM 7.5 mg/dL (8.5-10.1); CREATININE 1.84 mg/dL (0.55-1.02); TOTAL PROTEIN 5.1 g/dL (6.4-8.2)
[2018-09-12] MEDS: METOPROLOL TARTRATE 50 MG TABLET PO SCH ×2 (06:30→17:47)
[2018-09-12] MEDS: ALBUTEROL/IPRATROPIUM 2.5MG/0.5MG, 3 ML NPPB SCH ×2 (07:00→11:00)
[2018-09-12] MEDS: METOLAZONE 5 MG TABLET PO SCH ×2 (07:39→17:47)
[2018-09-12] MEDS: FUROSEMIDE 20 MG/2 ML IV SCH ×2 (07:39→18:59)
[2018-09-12 08:03] LABS: BASOPHILS # (AUTO) 0.05 x10^3/uL (0-0.1); BASOPHILS % (AUTO) 1 % (0-1); EOSINOPHILS % (AUTO) 1 % (1-7); LYMPHOCYTES # (AUTO) 0.46 x10^3/uL (1-3.4); LYMPHOCYTES % (AUTO) 5 % (22-44); MD NO; MEAN CORPUSCULAR HEMOGLOBIN 29.5 pg (27.0-34.8); MEAN CORPUSCULAR HGB CONC 33.3 g/dL (32.4-35.8); MEAN CORPUSCULAR VOLUME 88.5 fL (80-100); MEAN PLATELET VOLUME 8.2 fL (7.4-10.4); MONOCYTES # (AUTO) 0.52 x10^3/uL (0.2-0.8); MONOCYTES % (AUTO) 6 % (2-9); NEUTROPHILS # (AUTO) 8.33 x10^3/uL (1.8-6.8); NEUTROPHILS % (AUTO) 88 % (42-75); PLATELET COUNT 171 x10^3/uL (130-400); RED BLOOD COUNT 3.12 x10^6/uL (3.82-5.3); RED CELL DISTRIBUTION WIDTH 15.4 % (9.6-15.2)
[2018-09-12] MEDS: DOCUSATE 100 MG CAPSULE PO SCH ×2 (09:00→21:46)
[2018-09-12] MEDS ORDERED: TPN PER PHARMACY MC PRN (10:30)
[2018-09-12] MEDS ORDERED: ALBUTEROL/IPRATROPIUM 2.5MG/0.5MG, 3 ML NPPB PRN (12:00)
[2018-09-12] MEDS: LOSARTAN 50MG TABLET PO SCH (12:02)
[2018-09-12] MEDS: LINEZOLID 600 MG TABLET PO SCH ×2 (12:02→21:46)
[2018-09-12] MEDS: LORazepam 2 MG/ML, 1ML IVPush PRN ×2 (15:49→22:14)
[2018-09-12] MEDS ORDERED: [UNRECOGNIZED DRUG - OTHER] IV SCH (17:00)
[2018-09-12] MEDS ORDERED: AMINO ACID 10% IV SCH (17:00)
[2018-09-12] MEDS ORDERED: DEXTROSE 70% IV SCH (17:00)
[2018-09-12] MEDS ORDERED: FAT EMUL IV SCH (17:00)
[2018-09-12] MEDS ORDERED: DEXTROSE 50%, 50ML SYRINGE IVPush PRN (17:00)
[2018-09-12] MEDS ORDERED: SMOF TPN IV SCH (17:00)
[2018-09-12] MEDS ORDERED: DEXTROSE 10% 500 ML IV PRN (17:00)
[2018-09-12] MEDS: INSULIN REGULAR MEDIUM DOSE Q6H X 48HRS SQ-INSULIN SCH (22:10)
[2018-09-13] MEDS: MEROPENEM 1 GM in SODIUM CHLORIDE 0.9% 100 ML IV SCH ×2 (00:55→12:13)
[2018-09-13] MEDS: INSULIN REGULAR MEDIUM DOSE Q6H X 48HRS SQ-INSULIN SCH ×4 (03:42→21:00)
[2018-09-13 04:37] LABS: ALBUMIN 2.5 g/dL (3.4-5.0); ANION GAP 6 mmol/L (5-15); CALCIUM 7.9 mg/dL (8.5-10.1); CHLORIDE 107 mmol/L (98-107); CREATININE 2.45 mg/dL (0.55-1.02)
[2018-09-13 04:42] LABS: ALANINE AMINOTRANSFERASE 30 U/L (12-78); ALKALINE PHOSPHATASE 149 U/L (45-117); BILIRUBIN,TOTAL 0.6 mg/dL (0.2-1.0); PREALBUMIN 11.3 mg/dL (20.0-40.0); TOTAL PROTEIN 5.3 g/dL (6.4-8.2); TRIGLYCERIDES 103 mg/dL (50-200)
[2018-09-13 05:00] VITALS: BP_SYST 124
[2018-09-13] MEDS: METOPROLOL TARTRATE 50 MG TABLET PO SCH ×2 (06:52→17:17)
[2018-09-13] MEDS: FUROSEMIDE 20 MG/2 ML IV SCH (07:00)
[2018-09-13] MEDS: LINEZOLID 600 MG TABLET PO SCH ×2 (10:18→21:33)
[2018-09-13] MEDS: LOSARTAN 50MG TABLET PO SCH (10:18)
[2018-09-13] MEDS: DOCUSATE 100 MG CAPSULE PO SCH (10:18)
[2018-09-13] MEDS ORDERED: AMINO ACID 10% IV SCH (17:00)
[2018-09-13] MEDS ORDERED: [UNRECOGNIZED DRUG - OTHER] IV SCH (17:00)
[2018-09-13] MEDS ORDERED: DEXTROSE 70% IV SCH (17:00)
[2018-09-13] MEDS ORDERED: FAT EMUL IV SCH (17:00)
[2018-09-13] MEDS ORDERED: SMOF TPN IV SCH (17:00)
[2018-09-13] MEDS: FILTER, DISP 1.2 MICRON FOR TPN/PVN IV PRN (17:07)
[2018-09-13] MEDS: DOCUSATE 50 MG/5 ML, 10ML UDC PO SCH (21:33)
[2018-09-14] MEDS ORDERED: MEROPENEM 500 MG in SODIUM CHLORIDE 0.9% 100 ML IV SCH
[2018-09-14] MEDS: INSULIN REGULAR MEDIUM DOSE Q6H X 48HRS SQ-INSULIN SCH ×3 (03:00→15:00)
[2018-09-14 04:00] VITALS: BP 148/95
[2018-09-14 04:33] LABS: BASOPHILS # (AUTO) 0.04 x10^3/uL (0-0.1); BASOPHILS % (AUTO) 0 % (0-1); EOSINOPHILS % (AUTO) 4 % (1-7); LYMPHOCYTES # (AUTO) 0.64 x10^3/uL (1-3.4); LYMPHOCYTES % (AUTO) 7 % (22-44); MD NO; MEAN CORPUSCULAR HEMOGLOBIN 30.1 pg (27.0-34.8); MEAN CORPUSCULAR HGB CONC 33.3 g/dL (32.4-35.8); MEAN CORPUSCULAR VOLUME 90.3 fL (80-100); MEAN PLATELET VOLUME 8.6 fL (7.4-10.4); MONOCYTES # (AUTO) 0.79 x10^3/uL (0.2-0.8); MONOCYTES % (AUTO) 8 % (2-9); NEUTROPHILS # (AUTO) 7.43 x10^3/uL (1.8-6.8); NEUTROPHILS % (AUTO) 80 % (42-75); PLATELET COUNT 151 x10^3/uL (130-400); RED BLOOD COUNT 3.08 x10^6/uL (3.82-5.3); RED CELL DISTRIBUTION WIDTH 15.3 % (9.6-15.2)
[2018-09-14 04:51] LABS: ANION GAP 4 mmol/L (5-15); CALCIUM 8.1 mg/dL (8.5-10.1); CHLORIDE 104 mmol/L (98-107)
[2018-09-14] MEDS: METOPROLOL TARTRATE 50 MG TABLET PO SCH ×2 (05:17→18:16)
[2018-09-14] MEDS: LINEZOLID 600 MG TABLET PO SCH (08:13)
[2018-09-14] MEDS: DOCUSATE 50 MG/5 ML, 10ML UDC PO SCH ×2 (08:14→21:12)
[2018-09-14] MEDS: LOSARTAN 50MG TABLET PO SCH (08:14)
[2018-09-14] MEDS ORDERED: POTASSIUM CHLORIDE PMX 100 ML IV ONE (09:00)
[2018-09-14] MEDS: CEFTRIAXONE PMX 1GM/50ML 50 ML IV SCH ×2 (09:46→21:12)
[2018-09-14] MEDS ORDERED: LIDOCAINE 1%, 20ML ONE (13:13)
[2018-09-14] MEDS ORDERED: MIDAZOLAM 1 MG/ML, 5ML ONE (13:24)
[2018-09-14] MEDS ORDERED: FENTANYL PF 100 MCG/2ML ONE (13:24)
[2018-09-14] MEDS ORDERED: MAGNESIUM SULFATE PMX 2GM/50ML 50 ML IV ONE (14:00)
[2018-09-14] MEDS ORDERED: FENTANYL PF 100 MCG/2ML IV ONE (15:27)
[2018-09-14] MEDS ORDERED: MIDAZOLAM 1 MG/ML, 2ML IVPush ONE (15:27)
[2018-09-14] MEDS ORDERED: LABETALOL 5 MG/ML SYRINGE IVPush PRN (16:00)
[2018-09-14] MEDS ORDERED: FAT EMUL IV SCH (17:00)
[2018-09-14] MEDS ORDERED: DEXTROSE 70% IV SCH (17:00)
[2018-09-14] MEDS ORDERED: AMINO ACID 10% IV SCH (17:00)
[2018-09-14] MEDS ORDERED: [UNRECOGNIZED DRUG - OTHER] IV SCH (17:00)
[2018-09-14] MEDS ORDERED: SMOF TPN IV SCH (17:00)
[2018-09-14] MEDS: FILTER, DISP 1.2 MICRON FOR TPN/PVN IV PRN (18:14)
[2018-09-14 21:54] VITALS: BP 150/87
[2018-09-15 01:25] VITALS: BP 164/96
[2018-09-15 01:55] VITALS: BP 155/88
[2018-09-15 05:35] LABS: BASOPHILS # (AUTO) 0.02 x10^3/uL (0-0.1); BASOPHILS % (AUTO) 0 % (0-1); EOSINOPHILS # (AUTO) 0.04 x10^3/uL (0-0.4); EOSINOPHILS % (AUTO) 0 % (1-7); LYMPHOCYTES # (AUTO) 0.61 x10^3/uL (1-3.4); LYMPHOCYTES % (AUTO) 5 % (22-44); MD NO; MEAN CORPUSCULAR HEMOGLOBIN 29.8 pg (27.0-34.8); MEAN CORPUSCULAR HGB CONC 33.4 g/dL (32.4-35.8); MEAN CORPUSCULAR VOLUME 89.2 fL (80-100); MEAN PLATELET VOLUME 9.5 fL (7.4-10.4); MONOCYTES # (AUTO) 0.61 x10^3/uL (0.2-0.8); MONOCYTES % (AUTO) 5 % (2-9); NEUTROPHILS # (AUTO) 10.28 x10^3/uL (1.8-6.8); NEUTROPHILS % (AUTO) 89 % (42-75); PLATELET COUNT 132 x10^3/uL (130-400); RED BLOOD COUNT 3.17 x10^6/uL (3.82-5.3); RED CELL DISTRIBUTION WIDTH 15.4 % (9.6-15.2)
[2018-09-15 05:42] LABS: CHLORIDE 101 mmol/L (98-107)
[2018-09-15 05:48] LABS: ALANINE AMINOTRANSFERASE 24 U/L (12-78); ALBUMIN 2.5 g/dL (3.4-5.0); ALKALINE PHOSPHATASE 176 U/L (45-117); ANION GAP 6 mmol/L (5-15); BILIRUBIN,TOTAL 0.3 mg/dL (0.2-1.0); CALCIUM 8.4 mg/dL (8.5-10.1); CREATININE 3.01 mg/dL (0.55-1.02); PREALBUMIN 18.2 mg/dL (20.0-40.0); TOTAL PROTEIN 5.7 g/dL (6.4-8.2)
[2018-09-15] MEDS: METOPROLOL TARTRATE 50 MG TABLET PO SCH ×2 (05:57→18:52)
[2018-09-15] MEDS: INSULIN REGULAR MEDIUM DOSE QDAY SQ-INSULIN SCH (09:00)
[2018-09-15 09:30] VITALS: BP 139/85
[2018-09-15] MEDS: DOCUSATE 50 MG/5 ML, 10ML UDC PO SCH ×2 (09:57→20:44)
[2018-09-15] MEDS: LOSARTAN 50MG TABLET PO SCH (09:57)
[2018-09-15] MEDS: CEFTRIAXONE PMX 1GM/50ML 50 ML IV SCH ×2 (09:57→21:57)
[2018-09-15] MEDS: POTASSIUM CHLORIDE 20 MEQ in SODIUM CHLORIDE 0.45% 1,000 ML IV SCH ×2 (11:38→20:44)
[2018-09-15 14:00] VITALS: BP 145/87
[2018-09-15 16:33] VITALS: BP 151/92
[2018-09-15] MEDS: FILTER, DISP 1.2 MICRON FOR TPN/PVN IV PRN (16:54)
[2018-09-15] MEDS ORDERED: AMINO ACID 10% IV SCH (17:00)
[2018-09-15] MEDS ORDERED: DEXTROSE 70% IV SCH (17:00)
[2018-09-15] MEDS ORDERED: FAT EMUL IV SCH (17:00)
[2018-09-15] MEDS ORDERED: [UNRECOGNIZED DRUG - OTHER] IV SCH (17:00)
[2018-09-15] MEDS ORDERED: SMOF TPN IV SCH (17:00)
[2018-09-15 20:08] VITALS: BP 143/75
[2018-09-16 02:00] VITALS: BP 151/75
[2018-09-16 05:09] LABS: BASOPHILS # (AUTO) 0.05 x10^3/uL (0-0.1); BASOPHILS % (AUTO) 1 % (0-1); EOSINOPHILS # (AUTO) 0.12 x10^3/uL (0-0.4); EOSINOPHILS % (AUTO) 1 % (1-7); LYMPHOCYTES # (AUTO) 0.83 x10^3/uL (1-3.4); LYMPHOCYTES % (AUTO) 8 % (22-44); MD NO; MEAN CORPUSCULAR HEMOGLOBIN 30.1 pg (27.0-34.8); MEAN CORPUSCULAR HGB CONC 33.5 g/dL (32.4-35.8); MEAN CORPUSCULAR VOLUME 89.7 fL (80-100); MEAN PLATELET VOLUME 9.9 fL (7.4-10.4); MONOCYTES # (AUTO) 0.69 x10^3/uL (0.2-0.8); MONOCYTES % (AUTO) 7 % (2-9); NEUTROPHILS # (AUTO) 8.41 x10^3/uL (1.8-6.8); NEUTROPHILS % (AUTO) 83 % (42-75); PLATELET COUNT 115 x10^3/uL (130-400); RED BLOOD COUNT 2.92 x10^6/uL (3.82-5.3); RED CELL DISTRIBUTION WIDTH 15.7 % (9.6-15.2)
[2018-09-16 05:17] LABS: ANION GAP 5 mmol/L (5-15); CALCIUM 8.1 mg/dL (8.5-10.1); CHLORIDE 99 mmol/L (98-107); CREATININE 3.38 mg/dL (0.55-1.02)
[2018-09-16] MEDS: POTASSIUM CHLORIDE 20 MEQ in SODIUM CHLORIDE 0.45% 1,000 ML IV SCH (05:43)
[2018-09-16] MEDS: METOPROLOL TARTRATE 50 MG TABLET PO SCH ×2 (05:43→18:56)
[2018-09-16] MEDS: SODIUM CHLORIDE 0.45% 1,000 ML IV SCH (08:17)
[2018-09-16 08:21] VITALS: BP 163/99
[2018-09-16] MEDS: INSULIN REGULAR MEDIUM DOSE QDAY SQ-INSULIN SCH (09:00)
[2018-09-16] MEDS: CEFTRIAXONE PMX 1GM/50ML 50 ML IV SCH ×2 (10:28→21:55)
[2018-09-16] MEDS: DOCUSATE 50 MG/5 ML, 10ML UDC PO SCH ×2 (10:28→21:55)
[2018-09-16 15:15] VITALS: BP 157/78
[2018-09-16] MEDS ORDERED: [UNRECOGNIZED DRUG - OTHER] IV SCH (17:00)
[2018-09-16] MEDS ORDERED: DEXTROSE 70% IV SCH (17:00)
[2018-09-16] MEDS ORDERED: AMINO ACID 10% IV SCH (17:00)
[2018-09-16] MEDS ORDERED: SMOF TPN IV SCH (17:00)
[2018-09-16] MEDS ORDERED: FAT EMUL IV SCH (17:00)
[2018-09-16] MEDS: FILTER, DISP 1.2 MICRON FOR TPN/PVN IV PRN (17:11)
[2018-09-16 19:30] VITALS: BP 157/94
[2018-09-17] MEDS: SODIUM CHLORIDE 0.45% 1,000 ML IV SCH ×2 (04:02→21:03)
[2018-09-17 06:11] LABS: BASOPHILS # (AUTO) 0.05 x10^3/uL (0-0.1); BASOPHILS % (AUTO) 0 % (0-1); EOSINOPHILS # (AUTO) 0.01 x10^3/uL (0-0.4); EOSINOPHILS % (AUTO) 0 % (1-7); LYMPHOCYTES # (AUTO) 0.69 x10^3/uL (1-3.4); LYMPHOCYTES % (AUTO) 6 % (22-44); MD NO; MEAN CORPUSCULAR HEMOGLOBIN 30.3 pg (27.0-34.8); MEAN CORPUSCULAR HGB CONC 33.9 g/dL (32.4-35.8); MEAN CORPUSCULAR VOLUME 89.5 fL (80-100); MEAN PLATELET VOLUME 9.9 fL (7.4-10.4); MONOCYTES # (AUTO) 0.72 x10^3/uL (0.2-0.8); MONOCYTES % (AUTO) 6 % (2-9); NEUTROPHILS # (AUTO) 10.96 x10^3/uL (1.8-6.8); NEUTROPHILS % (AUTO) 88 % (42-75); PLATELET COUNT 115 x10^3/uL (130-400); RED BLOOD COUNT 3.01 x10^6/uL (3.82-5.3); RED CELL DISTRIBUTION WIDTH 15.3 % (9.6-15.2)
[2018-09-17 06:16] LABS: ALBUMIN 2.3 g/dL (3.4-5.0); ANION GAP 8 mmol/L (5-15); CALCIUM 8.1 mg/dL (8.5-10.1); CHLORIDE 99 mmol/L (98-107)
[2018-09-17 06:19] LABS: ALANINE AMINOTRANSFERASE 31 U/L (12-78); ALKALINE PHOSPHATASE 244 U/L (45-117); BILIRUBIN,TOTAL 0.5 mg/dL (0.2-1.0); CREATININE 3.02 mg/dL (0.55-1.02); TOTAL PROTEIN 5.7 g/dL (6.4-8.2)
[2018-09-17] MEDS: METOPROLOL TARTRATE 50 MG TABLET PO SCH ×2 (06:47→17:57)
[2018-09-17] MEDS: DOCUSATE 50 MG/5 ML, 10ML UDC PO SCH ×2 (09:00→21:02)
[2018-09-17] MEDS: INSULIN REGULAR MEDIUM DOSE QDAY SQ-INSULIN SCH (09:00)
[2018-09-17] MEDS: CEFTRIAXONE PMX 1GM/50ML 50 ML IV SCH ×2 (09:36→21:02)
[2018-09-17 09:42] VITALS: BP 164/92
[2018-09-17 15:22] VITALS: BP 154/93
[2018-09-17] MEDS ORDERED: [UNRECOGNIZED DRUG - OTHER] IV SCH (17:00)
[2018-09-17] MEDS ORDERED: FILTER, DISP 1.2 MICRON FOR TPN/PVN IV PRN (17:00)
[2018-09-17] MEDS ORDERED: SMOF TPN IV SCH (17:00)
[2018-09-17] MEDS ORDERED: FAT EMUL IV SCH (17:00)
[2018-09-17] MEDS ORDERED: AMINO ACID 10% IV SCH (17:00)
[2018-09-17] MEDS ORDERED: DEXTROSE 70% IV SCH (17:00)
[2018-09-17 20:05] VITALS: BP 156/95
[2018-09-18 02:46] VITALS: BP 158/91
[2018-09-18] MEDS: METOPROLOL TARTRATE 50 MG TABLET PO SCH ×2 (06:08→18:49)
[2018-09-18 06:40] LABS: BASOPHILS # (AUTO) 0.04 x10^3/uL (0-0.1); BASOPHILS % (AUTO) 0 % (0-1); EOSINOPHILS # (AUTO) 0.11 x10^3/uL (0-0.4); EOSINOPHILS % (AUTO) 1 % (1-7); LYMPHOCYTES # (AUTO) 0.59 x10^3/uL (1-3.4); LYMPHOCYTES % (AUTO) 6 % (22-44); MD NO; MEAN CORPUSCULAR HEMOGLOBIN 30.3 pg (27.0-34.8); MEAN PLATELET VOLUME 10.1 fL (7.4-10.4); MONOCYTES # (AUTO) 0.62 x10^3/uL (0.2-0.8); MONOCYTES % (AUTO) 6 % (2-9); NEUTROPHILS # (AUTO) 9.13 x10^3/uL (1.8-6.8); NEUTROPHILS % (AUTO) 87 % (42-75); PLATELET COUNT 135 x10^3/uL (130-400); RED BLOOD COUNT 3.04 x10^6/uL (3.82-5.3); RED CELL DISTRIBUTION WIDTH 15.3 % (9.6-15.2)
[2018-09-18 06:51] LABS: ANION GAP 5 mmol/L (5-15); CALCIUM 8.3 mg/dL (8.5-10.1); CHLORIDE 102 mmol/L (98-107); CREATININE 2.75 mg/dL (0.55-1.02)
[2018-09-18 08:42] VITALS: BP 168/96
[2018-09-18] MEDS: DOCUSATE 50 MG/5 ML, 10ML UDC PO SCH ×2 (08:43→21:40)
[2018-09-18] MEDS: INSULIN REGULAR MEDIUM DOSE QDAY SQ-INSULIN SCH (08:46)
[2018-09-18] MEDS: CEFTRIAXONE PMX 1GM/50ML 50 ML IV SCH ×2 (08:47→21:41)
[2018-09-18] MEDS: SODIUM CHLORIDE 0.45% 1,000 ML IV SCH ×2 (10:49→22:32)
[2018-09-18 13:53] VITALS: BP 166/96
[2018-09-18 20:00] VITALS: BP 166/90
[2018-09-19 02:13] VITALS: BP 163/78
[2018-09-19] MEDS: METOPROLOL TARTRATE 50 MG TABLET PO SCH ×2 (05:43→18:45)
[2018-09-19 06:46] LABS: BASOPHILS # (AUTO) 0.05 x10^3/uL (0-0.1); BASOPHILS % (AUTO) 1 % (0-1); EOSINOPHILS # (AUTO) 0.04 x10^3/uL (0-0.4); EOSINOPHILS % (AUTO) 0 % (1-7); LYMPHOCYTES # (AUTO) 0.73 x10^3/uL (1-3.4); LYMPHOCYTES % (AUTO) 8 % (22-44); MD NO; MEAN CORPUSCULAR HEMOGLOBIN 30.3 pg (27.0-34.8); MEAN CORPUSCULAR HGB CONC 34.6 g/dL (32.4-35.8); MEAN CORPUSCULAR VOLUME 87.4 fL (80-100); MEAN PLATELET VOLUME 9.9 fL (7.4-10.4); MONOCYTES # (AUTO) 0.74 x10^3/uL (0.2-0.8); MONOCYTES % (AUTO) 8 % (2-9); NEUTROPHILS # (AUTO) 8.26 x10^3/uL (1.8-6.8); NEUTROPHILS % (AUTO) 84 % (42-75); PLATELET COUNT 139 x10^3/uL (130-400); RED BLOOD COUNT 3.03 x10^6/uL (3.82-5.3); RED CELL DISTRIBUTION WIDTH 15.4 % (9.6-15.2)
[2018-09-19 07:00] LABS: ANION GAP 8 mmol/L (5-15); CHLORIDE 101 mmol/L (98-107); CREATININE 2.56 mg/dL (0.55-1.02)
[2018-09-19 08:17] VITALS: BP 178/101
[2018-09-19] MEDS: DOCUSATE 50 MG/5 ML, 10ML UDC PO SCH ×2 (09:07→20:40)
[2018-09-19] MEDS: CEFTRIAXONE PMX 1GM/50ML 50 ML IV SCH ×2 (09:07→20:40)
[2018-09-19 12:32] VITALS: BP 155/85
[2018-09-19] MEDS: HEPARIN 5,000 UNITS/ML, 1ML SQ SCH (18:45)
[2018-09-19 19:33] VITALS: BP 173/76
[2018-09-20 01:56] VITALS: BP 177/79
[2018-09-20] MEDS: HEPARIN 5,000 UNITS/ML, 1ML SQ SCH ×3 (03:20→18:14)
[2018-09-20] MEDS: METOPROLOL TARTRATE 50 MG TABLET PO SCH ×2 (06:06→18:14)
[2018-09-20 06:14] LABS: BASOPHILS # (AUTO) 0.08 x10^3/uL (0-0.1); BASOPHILS % (AUTO) 1 % (0-1); EOSINOPHILS % (AUTO) 0 % (1-7); LYMPHOCYTES # (AUTO) 0.63 x10^3/uL (1-3.4); LYMPHOCYTES % (AUTO) 7 % (22-44); MD NO; MEAN CORPUSCULAR HEMOGLOBIN 30.2 pg (27.0-34.8); MEAN CORPUSCULAR HGB CONC 34.5 g/dL (32.4-35.8); MEAN CORPUSCULAR VOLUME 87.5 fL (80-100); MEAN PLATELET VOLUME 9.2 fL (7.4-10.4); MONOCYTES # (AUTO) 0.68 x10^3/uL (0.2-0.8); MONOCYTES % (AUTO) 8 % (2-9); NEUTROPHILS # (AUTO) 7.13 x10^3/uL (1.8-6.8); NEUTROPHILS % (AUTO) 84 % (42-75); PLATELET COUNT 146 x10^3/uL (130-400); RED BLOOD COUNT 2.93 x10^6/uL (3.82-5.3); RED CELL DISTRIBUTION WIDTH 15.4 % (9.6-15.2)
[2018-09-20 06:22] LABS: ANION GAP 8 mmol/L (5-15); CALCIUM 8.3 mg/dL (8.5-10.1); CHLORIDE 105 mmol/L (98-107); CREATININE 2.54 mg/dL (0.55-1.02)
[2018-09-20 08:06] VITALS: BP 175/95
[2018-09-20] MEDS: DOCUSATE 50 MG/5 ML, 10ML UDC PO SCH ×2 (09:03→20:57)
[2018-09-20] MEDS: CEFTRIAXONE PMX 1GM/50ML 50 ML IV SCH ×2 (09:03→20:57)
[2018-09-20] MEDS: FUROSEMIDE 40 MG/4 ML IV SCH ×2 (10:54→20:57)
[2018-09-20 15:21] VITALS: BP 182/78
[2018-09-20 18:07] VITALS: BP 162/89
[2018-09-21] MEDS: HEPARIN 5,000 UNITS/ML, 1ML SQ SCH ×3 (01:51→18:26)
[2018-09-21 02:31] VITALS: BP 163/75
[2018-09-21 04:10] VITALS: BP 154/83
[2018-09-21] MEDS: FUROSEMIDE 40 MG/4 ML IV SCH ×2 (05:05→21:00)
[2018-09-21] MEDS: METOPROLOL TARTRATE 50 MG TABLET PO SCH ×2 (05:06→18:24)
[2018-09-21 05:21] LABS: BASOPHILS # (AUTO) 0.04 x10^3/uL (0-0.1); BASOPHILS % (AUTO) 1 % (0-1); EOSINOPHILS # (AUTO) 0.05 x10^3/uL (0-0.4); EOSINOPHILS % (AUTO) 1 % (1-7); LYMPHOCYTES # (AUTO) 0.62 x10^3/uL (1-3.4); LYMPHOCYTES % (AUTO) 7 % (22-44); MD NO; MEAN CORPUSCULAR HEMOGLOBIN 30.5 pg (27.0-34.8); MEAN CORPUSCULAR HGB CONC 34.8 g/dL (32.4-35.8); MEAN CORPUSCULAR VOLUME 87.7 fL (80-100); MEAN PLATELET VOLUME 9.3 fL (7.4-10.4); MONOCYTES # (AUTO) 0.75 x10^3/uL (0.2-0.8); MONOCYTES % (AUTO) 8 % (2-9); NEUTROPHILS # (AUTO) 7.48 x10^3/uL (1.8-6.8); NEUTROPHILS % (AUTO) 84 % (42-75); PLATELET COUNT 164 x10^3/uL (130-400); RED CELL DISTRIBUTION WIDTH 15.6 % (9.6-15.2)
[2018-09-21 05:35] LABS: ALBUMIN 2.3 g/dL (3.4-5.0); ANION GAP 7 mmol/L (5-15); CALCIUM 7.9 mg/dL (8.5-10.1); CHLORIDE 103 mmol/L (98-107)
[2018-09-21 05:37] LABS: CREATININE 2.48 mg/dL (0.55-1.02)
[2018-09-21 07:02] VITALS: BP 149/99
[2018-09-21] MEDS ORDERED: DOCUSATE 100 MG CAPSULE ONE (08:53)
[2018-09-21] MEDS: DOCUSATE 50 MG/5 ML, 10ML UDC PO SCH ×2 (08:54→21:48)
[2018-09-21] MEDS: CEFTRIAXONE PMX 1GM/50ML 50 ML IV SCH ×2 (08:55→21:47)
[2018-09-21] MEDS ORDERED: MAGNESIUM SULFATE PMX 2GM/50ML 50 ML IV ONE ×2 (09:30→13:00)
[2018-09-21] MEDS: POTASSIUM CHLORIDE 20 MEQ TAB.ER.PRT PO SCH (10:00)
[2018-09-21] MEDS ORDERED: POTASSIUM CHLORIDE 10% 40 MEQ/30 ML UDC ONE (10:14)
[2018-09-21 13:45] VITALS: BP 130/80
[2018-09-21 19:46] VITALS: BP 144/83
[2018-09-21] MEDS: APIXABAN 5 MG TABLET PO SCH (21:48)
[2018-09-22 02:09] VITALS: BP 151/93
[2018-09-22 03:45] LABS: BASOPHILS # (AUTO) 0.08 x10^3/uL (0-0.1); BASOPHILS % (AUTO) 1 % (0-1); EOSINOPHILS # (AUTO) 0.12 x10^3/uL (0-0.4); EOSINOPHILS % (AUTO) 2 % (1-7); LYMPHOCYTES % (AUTO) 10 % (22-44); MD NO; MEAN CORPUSCULAR HEMOGLOBIN 30.3 pg (27.0-34.8); MEAN CORPUSCULAR HGB CONC 34.3 g/dL (32.4-35.8); MEAN CORPUSCULAR VOLUME 88.5 fL (80-100); MEAN PLATELET VOLUME 8.9 fL (7.4-10.4); MONOCYTES # (AUTO) 0.61 x10^3/uL (0.2-0.8); MONOCYTES % (AUTO) 8 % (2-9); NEUTROPHILS # (AUTO) 5.87 x10^3/uL (1.8-6.8); NEUTROPHILS % (AUTO) 80 % (42-75); PLATELET COUNT 190 x10^3/uL (130-400); RED BLOOD COUNT 2.94 x10^6/uL (3.82-5.3); RED CELL DISTRIBUTION WIDTH 15.2 % (9.6-15.2)
[2018-09-22 03:54] LABS: ALBUMIN 2.3 g/dL (3.4-5.0); ANION GAP 8 mmol/L (5-15); CALCIUM 7.8 mg/dL (8.5-10.1); CHLORIDE 101 mmol/L (98-107); CREATININE 2.39 mg/dL (0.55-1.02)
[2018-09-22] MEDS: METOPROLOL TARTRATE 50 MG TABLET PO SCH ×2 (05:57→17:55)
[2018-09-22 07:06] VITALS: BP 139/80
[2018-09-22] MEDS ORDERED: DOCUSATE 100 MG CAPSULE ONE (09:00)
[2018-09-22] MEDS: POTASSIUM CHLORIDE 20 MEQ TAB.ER.PRT PO SCH (09:00)
[2018-09-22] MEDS: DOCUSATE 50 MG/5 ML, 10ML UDC PO SCH ×2 (09:00→21:45)
[2018-09-22] MEDS ORDERED: POTASSIUM CHLORIDE 10% 40 MEQ/30 ML UDC ONE (09:01)
[2018-09-22] MEDS: FUROSEMIDE 40 MG/4 ML IV SCH ×2 (09:04→21:00)
[2018-09-22] MEDS: APIXABAN 5 MG TABLET PO SCH ×2 (09:04→21:45)
[2018-09-22] MEDS: CEFTRIAXONE PMX 1GM/50ML 50 ML IV SCH ×2 (09:04→21:45)
[2018-09-22 13:49] VITALS: BP 140/86
[2018-09-22 19:58] VITALS: BP 125/82
[2018-09-23 02:06] VITALS: BP 133/80
[2018-09-23 05:17] LABS: BASOPHILS # (AUTO) 0.06 x10^3/uL (0-0.1); BASOPHILS % (AUTO) 1 % (0-1); EOSINOPHILS % (AUTO) 3 % (1-7); LYMPHOCYTES # (AUTO) 0.69 x10^3/uL (1-3.4); LYMPHOCYTES % (AUTO) 10 % (22-44); MD NO; MEAN CORPUSCULAR HEMOGLOBIN 29.1 pg (27.0-34.8); MEAN CORPUSCULAR HGB CONC 32.9 g/dL (32.4-35.8); MEAN CORPUSCULAR VOLUME 88.5 fL (80-100); MEAN PLATELET VOLUME 8.8 fL (7.4-10.4); MONOCYTES # (AUTO) 0.53 x10^3/uL (0.2-0.8); MONOCYTES % (AUTO) 7 % (2-9); NEUTROPHILS # (AUTO) 5.74 x10^3/uL (1.8-6.8); NEUTROPHILS % (AUTO) 79 % (42-75); PLATELET COUNT 172 x10^3/uL (130-400); RED BLOOD COUNT 2.89 x10^6/uL (3.82-5.3); RED CELL DISTRIBUTION WIDTH 15.2 % (9.6-15.2)
[2018-09-23 05:29] LABS: ANION GAP 6 mmol/L (5-15); CALCIUM 7.9 mg/dL (8.5-10.1); CHLORIDE 101 mmol/L (98-107)
[2018-09-23 05:30] LABS: CREATININE 2.28 mg/dL (0.55-1.02)
[2018-09-23] MEDS: METOPROLOL TARTRATE 50 MG TABLET PO SCH ×2 (06:05→18:23)
[2018-09-23 07:10] VITALS: BP 138/73
[2018-09-23] MEDS ORDERED: POTASSIUM CHLORIDE 10% 40 MEQ/30 ML UDC ONE (08:43)
[2018-09-23] MEDS: APIXABAN 5 MG TABLET PO SCH ×2 (08:45→20:01)
[2018-09-23] MEDS: FUROSEMIDE 40 MG/4 ML IV SCH ×2 (08:45→21:50)
[2018-09-23] MEDS: DOCUSATE 50 MG/5 ML, 10ML UDC PO SCH ×2 (08:46→20:01)
[2018-09-23] MEDS: CEFTRIAXONE PMX 1GM/50ML 50 ML IV SCH ×2 (08:46→21:50)
[2018-09-23] MEDS: POTASSIUM CHLORIDE 20 MEQ TAB.ER.PRT PO SCH (08:46)
[2018-09-23 12:56] VITALS: BP 131/70
[2018-09-23 19:15] VITALS: BP 144/86
[2018-09-24 02:08] VITALS: BP 127/84
[2018-09-24 05:02] LABS: BASOPHILS # (AUTO) 0.07 x10^3/uL (0-0.1); BASOPHILS % (AUTO) 1 % (0-1); EOSINOPHILS # (AUTO) 0.27 x10^3/uL (0-0.4); EOSINOPHILS % (AUTO) 4 % (1-7); LYMPHOCYTES # (AUTO) 0.78 x10^3/uL (1-3.4); LYMPHOCYTES % (AUTO) 12 % (22-44); MD NO; MEAN CORPUSCULAR HGB CONC 33.9 g/dL (32.4-35.8); MEAN CORPUSCULAR VOLUME 88.3 fL (80-100); MEAN PLATELET VOLUME 8.4 fL (7.4-10.4); MONOCYTES # (AUTO) 0.51 x10^3/uL (0.2-0.8); MONOCYTES % (AUTO) 8 % (2-9); NEUTROPHILS # (AUTO) 5.19 x10^3/uL (1.8-6.8); NEUTROPHILS % (AUTO) 76 % (42-75); PLATELET COUNT 155 x10^3/uL (130-400); RED BLOOD COUNT 2.84 x10^6/uL (3.82-5.3); RED CELL DISTRIBUTION WIDTH 15.3 % (9.6-15.2)
[2018-09-24 05:12] LABS: ANION GAP 6 mmol/L (5-15); CALCIUM 7.7 mg/dL (8.5-10.1); CHLORIDE 102 mmol/L (98-107); CREATININE 2.29 mg/dL (0.55-1.02)
[2018-09-24] MEDS: FUROSEMIDE 40 MG/4 ML IV SCH ×2 (05:28→17:14)
[2018-09-24] MEDS: METOPROLOL TARTRATE 50 MG TABLET PO SCH ×2 (05:28→17:14)
[2018-09-24 07:31] VITALS: BP 146/88
[2018-09-24] MEDS: DOCUSATE 50 MG/5 ML, 10ML UDC PO SCH ×2 (08:20→20:36)
[2018-09-24] MEDS: APIXABAN 5 MG TABLET PO SCH ×2 (08:20→20:36)
[2018-09-24] MEDS: POTASSIUM CHLORIDE 20 MEQ TAB.ER.PRT PO SCH (08:20)
[2018-09-24] MEDS: CEFTRIAXONE PMX 1GM/50ML 50 ML IV SCH (09:17)
[2018-09-24 13:12] VITALS: BP 136/88
[2018-09-24 17:12] VITALS: BP 142/89
[2018-09-24 19:37] VITALS: BP 149/84
[2018-09-25 00:33] VITALS: BP 150/84
[2018-09-25] MEDS: FUROSEMIDE 40 MG/4 ML IV SCH ×2 (05:56→20:33)
[2018-09-25] MEDS: METOPROLOL TARTRATE 50 MG TABLET PO SCH ×2 (05:56→18:46)
[2018-09-25 06:02] LABS: BASOPHILS # (AUTO) 0.03 x10^3/uL (0-0.1); BASOPHILS % (AUTO) 1 % (0-1); EOSINOPHILS # (AUTO) 0.29 x10^3/uL (0-0.4); EOSINOPHILS % (AUTO) 4 % (1-7); LYMPHOCYTES # (AUTO) 0.79 x10^3/uL (1-3.4); LYMPHOCYTES % (AUTO) 12 % (22-44); MD NO; MEAN CORPUSCULAR HEMOGLOBIN 30.4 pg (27.0-34.8); MEAN CORPUSCULAR HGB CONC 34.5 g/dL (32.4-35.8); MEAN CORPUSCULAR VOLUME 87.9 fL (80-100); MEAN PLATELET VOLUME 8.4 fL (7.4-10.4); MONOCYTES # (AUTO) 0.47 x10^3/uL (0.2-0.8); MONOCYTES % (AUTO) 7 % (2-9); NEUTROPHILS # (AUTO) 5.25 x10^3/uL (1.8-6.8); NEUTROPHILS % (AUTO) 77 % (42-75); PLATELET COUNT 154 x10^3/uL (130-400); RED BLOOD COUNT 2.87 x10^6/uL (3.82-5.3); RED CELL DISTRIBUTION WIDTH 14.9 % (9.6-15.2)
[2018-09-25 06:09] LABS: ANION GAP 6 mmol/L (5-15); CALCIUM 7.8 mg/dL (8.5-10.1); CHLORIDE 102 mmol/L (98-107); CREATININE 2.27 mg/dL (0.55-1.02)
[2018-09-25 06:56] VITALS: BP 150/89
[2018-09-25] MEDS: POTASSIUM CHLORIDE 20 MEQ TAB.ER.PRT PO SCH (08:44)
[2018-09-25] MEDS: APIXABAN 5 MG TABLET PO SCH ×2 (08:44→20:33)
[2018-09-25] MEDS: DOCUSATE 50 MG/5 ML, 10ML UDC PO SCH ×2 (08:44→20:33)
[2018-09-25 13:25] VITALS: BP 141/87
[2018-09-25 18:29] VITALS: BP 128/89
[2018-09-26 03:10] VITALS: BP 134/86
[2018-09-26 05:34] LABS: BASOPHILS # (AUTO) 0.07 x10^3/uL (0-0.1); BASOPHILS % (AUTO) 1 % (0-1); EOSINOPHILS # (AUTO) 0.24 x10^3/uL (0-0.4); EOSINOPHILS % (AUTO) 3 % (1-7); LYMPHOCYTES # (AUTO) 0.93 x10^3/uL (1-3.4); LYMPHOCYTES % (AUTO) 13 % (22-44); MD NO; MEAN CORPUSCULAR HEMOGLOBIN 29.5 pg (27.0-34.8); MEAN CORPUSCULAR HGB CONC 33.6 g/dL (32.4-35.8); MEAN CORPUSCULAR VOLUME 87.8 fL (80-100); MEAN PLATELET VOLUME 8.1 fL (7.4-10.4); MONOCYTES # (AUTO) 0.45 x10^3/uL (0.2-0.8); MONOCYTES % (AUTO) 6 % (2-9); NEUTROPHILS # (AUTO) 5.62 x10^3/uL (1.8-6.8); NEUTROPHILS % (AUTO) 77 % (42-75); PLATELET COUNT 160 x10^3/uL (130-400); RED BLOOD COUNT 2.97 x10^6/uL (3.82-5.3)
[2018-09-26] MEDS: FUROSEMIDE 40 MG/4 ML IV SCH ×2 (05:43→20:52)
[2018-09-26] MEDS: METOPROLOL TARTRATE 50 MG TABLET PO SCH ×2 (05:43→17:49)
[2018-09-26 05:48] LABS: ANION GAP 5 mmol/L (5-15); CALCIUM 7.7 mg/dL (8.5-10.1); CHLORIDE 100 mmol/L (98-107)
[2018-09-26 05:49] LABS: CREATININE 2.08 mg/dL (0.55-1.02)
[2018-09-26] MEDS: APIXABAN 5 MG TABLET PO SCH ×2 (07:13→20:59)
[2018-09-26] MEDS: DOCUSATE 50 MG/5 ML, 10ML UDC PO SCH ×2 (07:29→20:59)
[2018-09-26] MEDS: POTASSIUM CHLORIDE 20 MEQ TAB.ER.PRT PO SCH (07:29)
[2018-09-26 07:36] VITALS: BP 133/86
[2018-09-26] MEDS ORDERED: LIDOCAINE-MPF 1%, 5ML ONE (08:40)
[2018-09-26] MEDS ORDERED: NALOXONE 1 MG/ML, 2ML ONE (09:55)
[2018-09-26] MEDS ORDERED: FENTANYL PF 100 MCG/2ML ONE ×2 (09:55)
[2018-09-26] MEDS ORDERED: MIDAZOLAM 1 MG/ML, 5ML ONE (09:55)
[2018-09-26] MEDS ORDERED: FLUMAZENIL 0.1 MG/1 ML, 5ML ONE (09:55)
[2018-09-26 13:20] VITALS: BP 151/95
[2018-09-26 19:39] VITALS: BP 123/78
[2018-09-27 03:41] VITALS: BP 137/78
[2018-09-27] MEDS: FUROSEMIDE 40 MG/4 ML IV SCH ×2 (06:01→22:03)
[2018-09-27] MEDS: METOPROLOL TARTRATE 50 MG TABLET PO SCH ×2 (06:01→18:01)
[2018-09-27 06:34] LABS: BASOPHILS # (AUTO) 0.06 x10^3/uL (0-0.1); BASOPHILS % (AUTO) 1 % (0-1); EOSINOPHILS # (AUTO) 0.36 x10^3/uL (0-0.4); EOSINOPHILS % (AUTO) 5 % (1-7); LYMPHOCYTES # (AUTO) 1.06 x10^3/uL (1-3.4); LYMPHOCYTES % (AUTO) 15 % (22-44); MD NO; MEAN CORPUSCULAR HGB CONC 33.9 g/dL (32.4-35.8); MEAN CORPUSCULAR VOLUME 88.4 fL (80-100); MEAN PLATELET VOLUME 8.3 fL (7.4-10.4); MONOCYTES # (AUTO) 0.44 x10^3/uL (0.2-0.8); MONOCYTES % (AUTO) 6 % (2-9); NEUTROPHILS # (AUTO) 5.13 x10^3/uL (1.8-6.8); NEUTROPHILS % (AUTO) 73 % (42-75); PLATELET COUNT 145 x10^3/uL (130-400); RED BLOOD COUNT 2.78 x10^6/uL (3.82-5.3); RED CELL DISTRIBUTION WIDTH 14.7 % (9.6-15.2)
[2018-09-27 06:46] LABS: ANION GAP 8 mmol/L (5-15); CALCIUM 7.7 mg/dL (8.5-10.1); CHLORIDE 98 mmol/L (98-107); CREATININE 2.04 mg/dL (0.55-1.02)
[2018-09-27 07:40] VITALS: BP 123/76
[2018-09-27] MEDS: POTASSIUM CHLORIDE 20 MEQ TAB.ER.PRT PO SCH (08:23)
[2018-09-27] MEDS: DOCUSATE 50 MG/5 ML, 10ML UDC PO SCH ×2 (08:23→21:00)
[2018-09-27] MEDS: APIXABAN 5 MG TABLET PO SCH ×2 (08:23→21:00)
[2018-09-27 14:09] VITALS: BP 103/68
[2018-09-27 18:58] VITALS: BP 119/77
[2018-09-28 03:59] VITALS: BP 122/81
[2018-09-28 05:04] LABS: BASOPHILS # (AUTO) 0.04 x10^3/uL (0-0.1); BASOPHILS % (AUTO) 1 % (0-1); EOSINOPHILS # (AUTO) 0.09 x10^3/uL (0-0.4); EOSINOPHILS % (AUTO) 2 % (1-7); LYMPHOCYTES # (AUTO) 1.13 x10^3/uL (1-3.4); LYMPHOCYTES % (AUTO) 18 % (22-44); MD NO; MEAN CORPUSCULAR HGB CONC 33.1 g/dL (32.4-35.8); MEAN CORPUSCULAR VOLUME 87.4 fL (80-100); MEAN PLATELET VOLUME 8.3 fL (7.4-10.4); MONOCYTES # (AUTO) 0.45 x10^3/uL (0.2-0.8); MONOCYTES % (AUTO) 7 % (2-9); NEUTROPHILS # (AUTO) 4.48 x10^3/uL (1.8-6.8); NEUTROPHILS % (AUTO) 72 % (42-75); PLATELET COUNT 140 x10^3/uL (130-400); RED BLOOD COUNT 2.83 x10^6/uL (3.82-5.3); RED CELL DISTRIBUTION WIDTH 14.8 % (9.6-15.2)
[2018-09-28 05:16] LABS: ANION GAP 5 mmol/L (5-15); CALCIUM 7.4 mg/dL (8.5-10.1); CHLORIDE 98 mmol/L (98-107)
[2018-09-28 05:56] VITALS: BP 110/71
[2018-09-28] MEDS: METOPROLOL TARTRATE 50 MG TABLET PO SCH ×2 (05:57→17:57)
[2018-09-28] MEDS: APIXABAN 5 MG TABLET PO SCH ×2 (07:14→17:39)
[2018-09-28 07:35] VITALS: BP 123/75
[2018-09-28] MEDS: DOCUSATE 50 MG/5 ML, 10ML UDC PO SCH ×2 (09:57→20:51)
[2018-09-28] MEDS: POTASSIUM CHLORIDE 20 MEQ TAB.ER.PRT PO SCH (09:57)
[2018-09-28] MEDS: FUROSEMIDE 40 MG/4 ML IV SCH (09:57)
[2018-09-28] MEDS ORDERED: FENTANYL PF 100 MCG/2ML ONE (12:24)
[2018-09-28] MEDS ORDERED: MIDAZOLAM 1 MG/ML, 5ML ONE (12:24)
[2018-09-28] MEDS ORDERED: NALOXONE 1 MG/ML, 2ML ONE (12:25)
[2018-09-28] MEDS ORDERED: FLUMAZENIL 0.1 MG/1 ML, 5ML ONE (12:25)
[2018-09-28 14:56] VITALS: BP 124/81
[2018-09-28 17:20] VITALS: BP 119/82
[2018-09-28 20:12] VITALS: BP 119/81
[2018-09-29 03:02] VITALS: BP 123/77
[2018-09-29] MEDS: METOPROLOL TARTRATE 50 MG TABLET PO SCH ×2 (05:52→17:02)
[2018-09-29 07:09] VITALS: BP 128/78
[2018-09-29] MEDS: DOCUSATE 50 MG/5 ML, 10ML UDC PO SCH ×2 (08:01→21:02)
[2018-09-29] MEDS: FUROSEMIDE 40 MG TABLET PO SCH ×2 (08:01→17:02)
[2018-09-29] MEDS: POTASSIUM CHLORIDE 20 MEQ TAB.ER.PRT PO SCH (08:01)
[2018-09-29] MEDS: APIXABAN 5 MG TABLET PO SCH (10:42)
[2018-09-29 12:59] VITALS: BP 105/70
[2018-09-29 17:02] VITALS: BP 117/75
[2018-09-29] MEDS ORDERED: HOLD MEDICATION MC PRN (18:00)
[2018-09-29] MEDS ORDERED: TPN PER PHARMACY MC PRN (18:30)
[2018-09-29 21:16] VITALS: BP 129/82
[2018-09-30 03:07] VITALS: BP 123/80
[2018-09-30] MEDS: METOPROLOL TARTRATE 50 MG TABLET PO SCH ×2 (06:09→17:17)
[2018-09-30 06:29] LABS: CHLORIDE 98 mmol/L (98-107)
[2018-09-30 06:38] LABS: MEAN CORPUSCULAR HEMOGLOBIN 29.8 pg (27.0-34.8); MEAN CORPUSCULAR HGB CONC 33.8 g/dL (32.4-35.8); MEAN CORPUSCULAR VOLUME 88.1 fL (80-100); MEAN PLATELET VOLUME 8.1 fL (7.4-10.4); PLATELET COUNT 127 x10^3/uL (130-400); RED BLOOD COUNT 2.56 x10^6/uL (3.82-5.3); RED CELL DISTRIBUTION WIDTH 14.6 % (9.6-15.2)
[2018-09-30 06:40] LABS: % IRON SATURATION 14 % (20-55); ALANINE AMINOTRANSFERASE 28 U/L (12-78); ALBUMIN 2.8 g/dL (3.4-5.0); ALKALINE PHOSPHATASE 182 U/L (45-117); ANION GAP 8 mmol/L (5-15); BILIRUBIN,TOTAL 0.4 mg/dL (0.2-1.0); CALCIUM 7.7 mg/dL (8.5-10.1); CREATININE 1.71 mg/dL (0.55-1.02); IRON LEVEL 28 mcg/dL (50-170); PREALBUMIN 22.1 mg/dL (20.0-40.0); TOTAL IRON BINDING CAPACITY 204 mcg/dL (250-450); TOTAL PROTEIN 5.8 g/dL (6.4-8.2); TRIGLYCERIDES 200 mg/dL (50-200)
[2018-09-30 08:04] VITALS: BP 110/71
[2018-09-30 08:45] LABS: BASOPHILS # (AUTO) 0.03 x10^3/uL (0-0.1); BASOPHILS % (AUTO) 1 % (0-1); EOSINOPHILS % (AUTO) 0 % (1-7); LYMPHOCYTES # (AUTO) 1.37 x10^3/uL (1-3.4); LYMPHOCYTES % (AUTO) 22 % (22-44); MD SCAN; MONOCYTES # (AUTO) 0.45 x10^3/uL (0.2-0.8); MONOCYTES % (AUTO) 7 % (2-9); NEUTROPHILS % (AUTO) 70 % (42-75)
[2018-09-30] MEDS: FUROSEMIDE 40 MG TABLET PO SCH ×2 (08:59→17:17)
[2018-09-30] MEDS: POTASSIUM CHLORIDE 20 MEQ TAB.ER.PRT PO SCH (09:00)
[2018-09-30] MEDS: DOCUSATE 50 MG/5 ML, 10ML UDC PO SCH ×2 (09:02→21:00)
[2018-09-30] MEDS ORDERED: ERGOCALCIFEROL 50,000 UNIT CAPSULE PO SCH (11:30)
[2018-09-30] MEDS ORDERED: IRON SUCROSE COMPLEX 100MG/5ML IV SCH (11:30)
[2018-09-30 12:17] VITALS: BP 103/67
[2018-09-30] MEDS: CALCITRIOL 0.25 MCG CAPSULE PO SCH (12:21)
[2018-09-30 16:56] LABS: OCCULT BLOOD POSITIVE (NEGATIVE)
[2018-09-30] MEDS ORDERED: AMINO ACID 10% IV SCH (17:00)
[2018-09-30] MEDS ORDERED: [UNRECOGNIZED DRUG - OTHER] IV SCH (17:00)
[2018-09-30] MEDS ORDERED: DEXTROSE 10% 500 ML IV PRN (17:00)
[2018-09-30] MEDS ORDERED: FAT EMUL IV SCH (17:00)
[2018-09-30] MEDS ORDERED: SMOF TPN IV SCH (17:00)
[2018-09-30] MEDS ORDERED: DEXTROSE 70% IV SCH (17:00)
[2018-09-30] MEDS: FILTER, DISP 1.2 MICRON FOR TPN/PVN IV PRN (17:17)
[2018-09-30] MEDS ORDERED: MOVIPREP POWDER 1 PREP KIT PO ONE (18:00)
[2018-09-30 19:32] VITALS: BP 133/84
[2018-09-30] MEDS: INSULIN REGULAR MEDIUM DOSE Q6H X 48HRS SQ-INSULIN SCH (21:00)
[2018-10-01 01:58] VITALS: BP_SYST 133; BP_SYST 33; BP_DIAS 84
[2018-10-01] MEDS: INSULIN REGULAR MEDIUM DOSE Q6H X 48HRS SQ-INSULIN SCH ×4 (03:00→20:49)
[2018-10-01] MEDS: METOPROLOL TARTRATE 50 MG TABLET PO SCH ×2 (05:47→16:28)
[2018-10-01] MEDS: DOCUSATE 50 MG/5 ML, 10ML UDC PO SCH ×2 (05:47→20:47)
[2018-10-01] MEDS: FUROSEMIDE 40 MG TABLET PO SCH ×2 (05:47→16:28)
[2018-10-01 06:37] LABS: MEAN CORPUSCULAR HEMOGLOBIN 29.9 pg (27.0-34.8); MEAN CORPUSCULAR VOLUME 87.9 fL (80-100); MEAN PLATELET VOLUME 8.3 fL (7.4-10.4); PLATELET COUNT 122 x10^3/uL (130-400); RED BLOOD COUNT 2.59 x10^6/uL (3.82-5.3); RED CELL DISTRIBUTION WIDTH 14.6 % (9.6-15.2)
[2018-10-01 06:41] LABS: ALBUMIN 2.8 g/dL (3.4-5.0); ANION GAP 6 mmol/L (5-15); CALCIUM 8.3 mg/dL (8.5-10.1); CHLORIDE 106 mmol/L (98-107)
[2018-10-01 06:42] LABS: % IRON SATURATION 83 % (20-55); CREATININE 1.52 mg/dL (0.55-1.02); IRON LEVEL 184 mcg/dL (50-170); TOTAL IRON BINDING CAPACITY 221 mcg/dL (250-450)
[2018-10-01 07:33] LABS: BASOPHILS # (AUTO) 0.02 x10^3/uL (0-0.1); BASOPHILS % (AUTO) 0 % (0-1); EOSINOPHILS % (AUTO) 0 % (1-7); LYMPHOCYTES # (AUTO) 1.39 x10^3/uL (1-3.4); LYMPHOCYTES % (AUTO) 25 % (22-44); MD SCAN; MONOCYTES # (AUTO) 0.45 x10^3/uL (0.2-0.8); MONOCYTES % (AUTO) 8 % (2-9); NEUTROPHILS # (AUTO) 3.75 x10^3/uL (1.8-6.8); NEUTROPHILS % (AUTO) 67 % (42-75)
[2018-10-01] MEDS: CALCITRIOL 0.25 MCG CAPSULE PO SCH (07:43)
[2018-10-01] MEDS: POTASSIUM CHLORIDE 20 MEQ TAB.ER.PRT PO SCH (07:44)
[2018-10-01 09:18] VITALS: BP 143/86
[2018-10-01] MEDS ORDERED: FENTANYL PF 100 MCG/2ML IV PRN (13:00)
[2018-10-01] MEDS ORDERED: PROPOFOL 10 MG/ML, 20ML ONE (13:00)
[2018-10-01] MEDS ORDERED: ONDANSETRON 2MG/ML, 2ML IV PRN (13:00)
[2018-10-01 15:13] VITALS: BP 156/84
[2018-10-01] MEDS: FILTER, DISP 1.2 MICRON FOR TPN/PVN IV PRN (16:55)
[2018-10-01] MEDS ORDERED: FAT EMUL IV SCH (17:00)
[2018-10-01] MEDS ORDERED: AMINO ACID 10% IV SCH (17:00)
[2018-10-01] MEDS ORDERED: DEXTROSE 70% IV SCH (17:00)
[2018-10-01] MEDS ORDERED: [UNRECOGNIZED DRUG - OTHER] IV SCH (17:00)
[2018-10-01] MEDS ORDERED: SMOF TPN IV SCH (17:00)
[2018-10-01 20:18] VITALS: BP 153/88
[2018-10-02 00:07] VITALS: BP 150/85
[2018-10-02] MEDS: INSULIN REGULAR MEDIUM DOSE Q6H X 48HRS SQ-INSULIN SCH ×2 (03:00→09:43)
[2018-10-02 04:10] VITALS: BP 149/78
[2018-10-02 04:39] LABS: MEAN CORPUSCULAR HEMOGLOBIN 28.8 pg (27.0-34.8); MEAN CORPUSCULAR VOLUME 87.4 fL (80-100); MEAN PLATELET VOLUME 8.2 fL (7.4-10.4); PLATELET COUNT 120 x10^3/uL (130-400); RED BLOOD COUNT 2.47 x10^6/uL (3.82-5.3); RED CELL DISTRIBUTION WIDTH 14.5 % (9.6-15.2)
[2018-10-02 04:46] LABS: ALANINE AMINOTRANSFERASE 32 U/L (12-78); ALBUMIN 2.8 g/dL (3.4-5.0); ANION GAP 6 mmol/L (5-15); CALCIUM 8.5 mg/dL (8.5-10.1); CHLORIDE 103 mmol/L (98-107)
[2018-10-02 04:49] LABS: ALKALINE PHOSPHATASE 220 U/L (45-117); BILIRUBIN,TOTAL 0.4 mg/dL (0.2-1.0); CREATININE 1.32 mg/dL (0.55-1.02); TOTAL PROTEIN 6.2 g/dL (6.4-8.2)
[2018-10-02] MEDS: METOPROLOL TARTRATE 50 MG TABLET PO SCH (05:47)
[2018-10-02 06:01] LABS: BASOPHILS # (AUTO) 0.02 x10^3/uL (0-0.1); BASOPHILS % (AUTO) 0 % (0-1); EOSINOPHILS % (AUTO) 0 % (1-7); LYMPHOCYTES # (AUTO) 1.29 x10^3/uL (1-3.4); LYMPHOCYTES % (AUTO) 23 % (22-44); MD SCAN; MONOCYTES # (AUTO) 0.39 x10^3/uL (0.2-0.8); MONOCYTES % (AUTO) 7 % (2-9); NEUTROPHILS # (AUTO) 3.92 x10^3/uL (1.8-6.8); NEUTROPHILS % (AUTO) 70 % (42-75)
[2018-10-02 08:10] VITALS: BP 135/79
[2018-10-02] MEDS: POTASSIUM CHLORIDE 20 MEQ TAB.ER.PRT PO SCH (08:19)
[2018-10-02] MEDS: FUROSEMIDE 40 MG TABLET PO SCH (08:19)
[2018-10-02] MEDS: DOCUSATE 50 MG/5 ML, 10ML UDC PO SCH (08:19)
[2018-10-02] MEDS: CALCITRIOL 0.25 MCG CAPSULE PO SCH (08:19)
[2018-10-02 12:46] VITALS: BP 129/76
[2018-10-02] MEDS ORDERED: BISA10SU54 PR (13:09)
[2018-10-02] MEDS ORDERED: POTA20TA6 PO (13:09)
[2018-10-02] MEDS ORDERED: FURO40TA6 PO (13:09)
[2018-10-02] MEDS ORDERED: CALC0.25 PO (13:09)
[2018-10-02] MEDS ORDERED: METO50TA82 PO (13:09)
[2018-10-02] MEDS ORDERED: APIX5TAB PO (13:09)
[2018-10-02] MEDS ORDERED: Tpn Per Pharmacy MC (13:09)
[2018-10-02] MEDS ORDERED: TRAM50TA2 PO (13:09)
[2018-10-02] MEDS ORDERED: ERGO500017 PO (13:09)
[2018-10-02] MEDS ORDERED: INSU100V5 SQ-INSULIN ×2 (13:09)
[2018-10-02] MEDS ORDERED: ACET325T14 PO (13:09)
[2018-10-02] MEDS ORDERED: [UNRECOGNIZED DRUG - OTHER] IV SCH (17:00)
[2018-10-02] MEDS ORDERED: FILTER, DISP 1.2 MICRON FOR TPN/PVN IV PRN (17:00)
[2018-10-02] MEDS ORDERED: FAT EMUL IV SCH (17:00)
[2018-10-02] MEDS ORDERED: SMOF TPN IV SCH (17:00)
[2018-10-02] MEDS ORDERED: DEXTROSE 70% IV SCH (17:00)
[2018-10-02] MEDS ORDERED: AMINO ACID 10% IV SCH (17:00)
[2018-10-02] MEDS ORDERED: APIXABAN 5 MG TABLET PO SCH (21:00)
[2018-10-03] MEDS ORDERED: INSULIN REGULAR MEDIUM DOSE QDAY SQ-INSULIN SCH (21:00)
== END 2018-10-02 13:37 | DRG 268 ==
LOC: ORIP 07:58 → ICU 18:45 → CSU 08-30 17:25 → 4NOR 08-31 17:12 → 5SO 09-09 08:49 → CCU 09-11 14:31 → 4NOR 09-14 21:52
PROVIDERS: ADMIT Surgery; ATTEND Surgery
PROC: 04C00ZZ Extirpation of Matter from Abdominal Aorta, Open Approach (ICD-10-PCS; 2018-08-29)
PROC: 04100JK Bypass Abdominal Aorta to Bilateral Femoral Arteries with Synthetic Substitute, Open Approach (ICD-10-PCS; 2018-08-29)
PROC: 04CK0ZZ Extirpation of Matter from Right Femoral Artery, Open Approach (ICD-10-PCS; 2018-08-29)
PROC: 04PY0DZ Removal of Intraluminal Device from Lower Artery, Open Approach (ICD-10-PCS; 2018-08-29)
PROC: 04CL0ZZ Extirpation of Matter from Left Femoral Artery, Open Approach (ICD-10-PCS; principal; 2018-08-29 10:00)
PROC: 30233N1 Transfusion of Nonautologous Red Blood Cells into Peripheral Vein, Percutaneous Approach (ICD-10-PCS; 2018-09-05)
PROC: B5181ZA Fluoroscopy of Superior Vena Cava using Low Osmolar Contrast, Guidance (ICD-10-PCS; 2018-09-08)
PROC: B548ZZA Ultrasonography of Superior Vena Cava, Guidance (ICD-10-PCS; 2018-09-08)
PROC: 02HV33Z Insertion of Infusion Device into Superior Vena Cava, Percutaneous Approach (ICD-10-PCS; 2018-09-08)
PROC: 0W9F3ZZ Drainage of Abdominal Wall, Percutaneous Approach (ICD-10-PCS; 2018-09-15)
PROC: 0W2FX0Z Change Drainage Device in Abdominal Wall, External Approach (ICD-10-PCS; 2018-09-26)
PROC: 0W9F30Z Drainage of Abdominal Wall with Drainage Device, Percutaneous Approach (ICD-10-PCS; 2018-09-28)
PROC: 0DJ08ZZ Inspection of Upper Intestinal Tract, Via Natural or Artificial Opening Endoscopic (ICD-10-PCS; 2018-10-01)
PROC: 0DBP8ZZ Excision of Rectum, Via Natural or Artificial Opening Endoscopic (ICD-10-PCS; 2018-10-01)
PROC: 0DBN8ZZ Excision of Sigmoid Colon, Via Natural or Artificial Opening Endoscopic (ICD-10-PCS; 2018-10-01)
DX: I70.0 Atherosclerosis of aorta (principal); E43 Unspecified severe protein-calorie malnutrition; G93.41 Metabolic encephalopathy; I26.99 Other pulmonary embolism without acute cor pulmonale; I46.9 Cardiac arrest, cause unspecified; J18.1 Lobar pneumonia, unspecified organism; J96.01 Acute respiratory failure with hypoxia; N17.0 Acute kidney failure with tubular necrosis; E87.0 Hyperosmolality and hypernatremia; E87.1 Hypo-osmolality and hyponatremia; E87.3 Alkalosis; I13.0 Hypertensive heart and chronic kidney disease with heart failure and stage 1 through stage 4 chronic kidney disease, or unspecified chronic kidney disease; J98.11 Atelectasis; K56.7 Ileus, unspecified; N39.0 Urinary tract infection, site not specified; Q89.09 Congenital malformations of spleen; R18.8 Other ascites; T78.2XXA Anaphylactic shock, unspecified, initial encounter; I75.89 Atheroembolism of other site; N28.0 Ischemia and infarction of kidney; I73.9 Peripheral vascular disease, unspecified; D63.1 Anemia in chronic kidney disease; E83.39 Other disorders of phosphorus metabolism; E83.42 Hypomagnesemia; E86.9 Volume depletion, unspecified; E87.6 Hypokalemia; I50.9 Heart failure, unspecified; I95.81 Postprocedural hypotension; K62.1 Rectal polyp; M19.90 Unspecified osteoarthritis, unspecified site; N18.9 Chronic kidney disease, unspecified; I89.8 Other specified noninfective disorders of lymphatic vessels and lymph nodes; N25.0 Renal osteodystrophy; Z96.641 Presence of right artificial hip joint; K63.5 Polyp of colon; Z79.01 Long term (current) use of anticoagulants; Z82.49 Family history of ischemic heart disease and other diseases of the circulatory system; Z87.891 Personal history of nicotine dependence; Z91.041 Radiographic dye allergy status; Z91.013 Allergy to seafood; Z88.8 Allergy status to other drugs, medicaments and biological substances
CPT/HCPCS: 36415; 36573; 36600; 49405; 49423; 70450; 71045; 71250; 74018; 74176; 75984; 75989; 78582; 80048; 80053; 80069; 80202; 81001; 82042; 82140; 82150; 82272; 82306; 82330; 82728; 82803; 82947; 82962; 83036; 83540; 83550; 83690; 83735; 83880; 83970; 83986; 84100; 84132; 84134; 84145; 84157; 84295; 84443; 84478; 84484; 84550; 85014; 85018; 85025; 85520; 86850; 86900; 86923; 87015; 87040; 87070; 87075; 87081; 87086; 87116; 87205; 87206; 87324; 88112; 88305; 89051; 93005; 93306; 93922; 93925; 93970; 94640; 99156; 99157; G0378; J0295; J0456; J0610; J0690; J0692; J0696; J1170; J1644; J1650; J1756; J1815; J1940; J2185; J2250; J2270; J2405; J2704; J2720; J3010; J3370; J3475; J3480; J3490; J7042; J7070; J7620; P9047; A9540; A9558; C1729; C1751; C1757; C1768; C1769; C9898; J0330; J2060; J2310; J2370; J2440; J3420; J7030; J7050; J7120; J7121; P9016

== ENCOUNTER → 2019-06-24 | Outpatient (CLI) | payer MEDICARE ==
[~2019-06-24] MED LIST changes: +ACET325T14 PO; +APIX5TAB PO; +BISA10SU54 PR; +CALC0.25 PO; +DAPT500V6 IV; +ERGO500017 PO; +FURO40TA6 PO; -HEPARIN 1,000 UNITS/ML, 10ML ONE; +INSU100V5 SQ-INSULIN; -LIDOCAINE 1%, 20ML ONE; +METO50TA82 PO; -PAPAVERINE 30 MG/ML, 2ML ONE; +POTA20TA6 PO; -PROTAMINE SULFATE 10 MG/ML, 5ML ONE; -THROMBIN 20,000 UNIT VIAL TP ONE; +Tpn Per Pharmacy MC
[2019-06-24 10:04] LABS: CREATININE 1.03 mg/dL (0.55-1.02)
== END | disposition home or self-care (01) ==
LOC: RAD 09:21
PROVIDERS: ATTEND Internal Medicine Geriatric Medicine
DX: Z01.812 Encounter for preprocedural laboratory examination (principal); R93.5 Abnormal findings on diagnostic imaging of other abdominal regions, including retroperitoneum
CPT/HCPCS: 36415; 82565

== ENCOUNTER 2019-06-26 11:04 | Outpatient (CLI) | payer MEDICARE ==
[2019-06-26] MEDS ORDERED: OMNIPAQUE 350 MG/ML, 100ML BOTTLE ONE (13:00)
== END 2019-06-26 23:59 | disposition home or self-care (01) ==
LOC: RAD 11:04
PROVIDERS: ATTEND Internal Medicine Geriatric Medicine
DX: Z01.812 Encounter for preprocedural laboratory examination (principal); R93.5 Abnormal findings on diagnostic imaging of other abdominal regions, including retroperitoneum; C18.9 Malignant neoplasm of colon, unspecified; R06.02 Shortness of breath; I10 Essential (primary) hypertension; Z72.89 Other problems related to lifestyle; Z87.891 Personal history of nicotine dependence
CPT/HCPCS: 74170; Q9967

== ENCOUNTER → 2019-07-10 | Outpatient (CLI) | payer MEDICARE ==
[2019-07-10 12:52] LABS: BASOPHILS # (AUTO) 0.05 x10^3/uL (0-0.1); BASOPHILS % (AUTO) 1 % (0-1); EOSINOPHILS % (AUTO) 2 % (1-7); LYMPHOCYTES # (AUTO) 1.25 x10^3/uL (1-3.4); LYMPHOCYTES % (AUTO) 18 % (22-44); MD NO; MEAN CORPUSCULAR HEMOGLOBIN 30.7 pg (27.0-34.8); MEAN CORPUSCULAR HGB CONC 33.4 g/dL (32.4-35.8); MEAN CORPUSCULAR VOLUME 91.8 fL (80-100); MONOCYTES # (AUTO) 0.39 x10^3/uL (0.2-0.8); MONOCYTES % (AUTO) 6 % (2-9); NEUTROPHILS % (AUTO) 75 % (42-75); PLATELET COUNT 125 x10^3/uL (130-400); RED BLOOD COUNT 4.94 x10^6/uL (3.82-5.3); RED CELL DISTRIBUTION WIDTH 15.5 % (9.6-15.2)
[2019-07-10 13:00] LABS: ALBUMIN 3.9 g/dL (3.4-5.0); CALCIUM 8.7 mg/dL (8.5-10.1); CHLORIDE 99 mmol/L (98-107)
[2019-07-10 13:10] LABS: ALANINE AMINOTRANSFERASE 28 U/L (12-78); ALKALINE PHOSPHATASE 151 U/L (45-117); ANION GAP 6 mmol/L (5-15); BILIRUBIN,TOTAL 0.8 mg/dL (0.2-1.0); TOTAL PROTEIN 7.5 g/dL (6.4-8.2)
== END | disposition home or self-care (01) ==
LOC: LAB 12:33
PROVIDERS: ATTEND Surgery
DX: C20 Malignant neoplasm of rectum (principal)
CPT/HCPCS: 36415; 80053; 82378; 85025

== ENCOUNTER 2019-07-15 11:32 | Outpatient (CLI) | payer MEDICARE ==
[2019-07-15] MEDS ORDERED: OMNIPAQUE 350 MG/ML, 75ML BOTTLE ONE (14:19)
== END 2019-07-15 23:59 | disposition home or self-care (01) ==
LOC: RAD 11:32
PROVIDERS: ATTEND Surgery
DX: C20 Malignant neoplasm of rectum (principal); R91.1 Solitary pulmonary nodule; M47.814 Spondylosis without myelopathy or radiculopathy, thoracic region; I70.0 Atherosclerosis of aorta; I70.8 Atherosclerosis of other arteries
CPT/HCPCS: 71260; Q9967